=== PATIENT | male | born 1930 | race Caucasian/White ===

== ENCOUNTER 2017-08-22 01:00 | Inpatient (IN) ==
--- NOTE | 2017-08-22 01:14 | Emergency Department Report ---
Abdominal Pain HPI - General Stated Complaint: constipation x 5days Time Seen by Provider: 08/22/17 01:13 Source: patient Mode of arrival: ambulatory Limitations: no limitations - History of Present Illness HPI narrative: Pt believes he is constipated as he has not been able to have a normal BM for several days. Having tried several medications otc, tonight the patient tried two dulcolax tabs and began having bloating and increasing pain. Pt believes he has not passed gas all day, and no BM for at least 5 days. - Related Data Home Medications Medication Instructions Recorded Confirmed hydroCHLOROthiazide 25 mg PO DAILY #0 tab 10/30/13 08/22/17 [Hydrochlorothiazide] Acetaminophen [Tylenol] 500 mg PO PRN PRN 08/22/17 08/22/17 Atorvastatin [Lipitor] 1 tab PO HS 08/22/17 08/22/17 Calcium 600 + D [Caltrate + D] 600 mg PO ACB 08/22/17 08/22/17 Metoprolol Tartrate 50 mg PO HS 08/22/17 08/22/17 Omeprazole 40 mg PO DAILY 08/22/17 08/22/17 Oxybutynin Chloride [Ditropan Xl] 10 mg PO DAILY 08/22/17 08/22/17 Trospium [Sanctura] 20 mg PO DAILY 08/22/17 08/22/17 Vitamin E 400 units PO ACB 08/22/17 08/22/17 Allergies Allergy/AdvReac Type Severity Reaction Status Date / Time No Known Allergies Allergy Verified 07/10/17 14:19 Review of Systems All systems: reviewed and negative except as stated PFSH Patient Stated Medical History Cerebrovascular Accident Yes: left side weakness Hearing Loss Yes 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 Colonoscopy. 2. Hernia repair. 3. Cataract removal. 4. Appendectomy. 5. Right finger fx Family History: Family History (Last Reviewed 07/10/17 @ 16:00 by Giuliano Kennedy MD) Father No problems noted. Mother No problems noted. - Social History Smoking status: Never smoker Substance use type: does not use Alcohol intake: never Alcohol intake frequency: does not drink Household members: spouse Current occupational status: retired Physical Exam - Limitations Limitations: no limitations - General General appearance: alert - Normal Exams: Head:: Normocephalic without trauma Eyes:: Pupils are PERRLA w/ EOMI, No scleral icterus, irritation, or foreign bodies noted ENMT:: No facial trauma, nasal exudates, pharyngeal erythema, or exudates are noted Neck:: Full range of motion, without adenopathy, JVD, bruits or thyromegaly Chest/Respirations:: Clear all guzman, with good airflow, and symmetry bilaterally Cardiovascular:: Regular rate and rhythm, without murmur or gallop, Pulses 2+ all extremities, capillary refill, <2 seconds all extremities Lymphatic:: No lymphadenopathy, or lymphedema noted Musculoskeletal:: No tenderness, or deformity noted, good range of motion, all extremities Integumentary:: No rashes, hives, or bruising noted, hair and nails, without abnormality Neurological:: Patient is alert, and oriented, cranial nerves, motor/sensory/ cerebellar, exams w/o gross deficits, to observation Psychiatric:: Patient exhibits, appropriate attention, emotion and affect - Abdominal Exam Abdominal exam: Present: soft, distention, tenderness (diffuse upper tenderness) , guarding, diminished bowel sounds, hypoactive bowel sounds. Absent: rebound, rigidity, organomegaly, trauma, psoas sign, obturator sign, heel tap sign, Barba's sign, Rovsing's sign, tenderness at McBurney's Point, mass, bruit, pulsatile mass, hernia, scar Abdominal Pain - [facility] Narrative Medical decision making narrative: Given Fentanyl and compazine with IVF - some improvement but needed additional Fentanyl cbc - elevated WBC 17,000, no shift CMP normal except elevated Bili 3.5, majority unconjugated. CT shows acute cholecystitis with pericholecystic and perihepatic free fluid. Dr Gomez paged at [phone] - and again at [phone] - Discussed at 0450 - prefers hospitalist admit and get US in AM to assure no CBD stone. Dr. Benítez notified and accepted. - Lab Data Result diagrams: 08/22/17 02:12 08/22/17 02:12 Disposition Clinical Impression: Acute cholecystitis Disposition: 02 [place] [facility] [place] Condition: Improved Prescriptions: No Action Calcium 600 + D [Caltrate + D] 600 mg PO ACB Oxybutynin Chloride [Ditropan Xl] 10 mg PO DAILY Atorvastatin [Lipitor] 1 tab PO HS Omeprazole 40 mg PO DAILY Metoprolol Tartrate 50 mg PO HS Trospium [Sanctura] 20 mg PO DAILY hydroCHLOROthiazide [Hydrochlorothiazide] 25 mg PO DAILY #0 tab Vitamin E 400 units PO ACB Acetaminophen [Tylenol] 500 mg PO PRN PRN PRN Reason: Pain Referrals: Mikayla Norris MD [Primary Care Provider] - - Seen By: physician
[2017-08-22] MEDS ORDERED: FentaNYL 100 MCG/2 ML INJECTION IVP ONE ×2 (01:44→04:06)
[2017-08-22] MEDS ORDERED: METOCLOPRAMIDE 10mg/2ml INJECTION IM ONE (01:44)
[2017-08-22] MEDS ORDERED: KETOROLAC 15 MG/ML INJECTION IVP ONE (01:44)
[2017-08-22] MEDS ORDERED: NS 1,000 ML IV ONE (01:45)
[2017-08-22] MEDS: SALINE FLUSH 10ml SYRINGE IVF PRN ×3 (02:12→12:45)
[2017-08-22] MEDS ORDERED: METOCLOPRAMIDE 10mg/2ml INJECTION IVP ONE (02:36)
[2017-08-22] MEDS ORDERED: IOHEXOL 300mg/ml 100ml INJECTION ONE (02:46)
[2017-08-22] MEDS ORDERED: SALINE FLUSH 10ml SYRINGE ONE ×2 (02:47→15:55)
[2017-08-22] MEDS ORDERED: ONDANSETRON 4 MG/2 ML INJECTION IVP PRN ×2 (05:33→16:55)
[2017-08-22 06:00] VITALS: BMI 37.5
--- NOTE | 2017-08-22 06:18 | History & Physical Report ---
History of Present Illness Date: 08/22/17 Chief complaint: abdominal pain HPI: 87 yo who presents to the ER c/o midabominal pain, constant, sharp cramping, radiating to the rt shoulder blade present for the past 5 days. no fevers, chills, vomiting but + for nausea and constipation X 5 days, bloating and distention. He went to an ER in [place], [place] and was told he was constipated and sent home on Miralax Review of Systems All systems PM: 10-point ROS was reviewed, no additional remarkable complaints except Past Medical History Medical History: Medical History (Last Reviewed 08/22/17 @ 06:18 by Orlando Benítez MD) Arthritis Cataracts, bilateral Glaucoma Stroke October 2013 GERD (gastroesophageal reflux disease) Surgical History: 1. Colonoscopy. 2. Hernia repair. 3. Cataract removal. 4. Appendectomy. 5. Right finger fx Family History: Family History (Last Reviewed 07/10/17 @ 16:00 by Giuliano Kennedy MD) Father No problems noted. Mother No problems noted. Family History: As Above (ok) - Social History Smoking status: Never smoker Medications Home Medications Medication Instructions Recorded Confirmed Type hydroCHLOROthiazide 25 mg PO DAILY #0 tab 10/30/13 08/22/17 History [Hydrochlorothiazide] Acetaminophen [Tylenol] 500 mg PO PRN PRN 08/22/17 08/22/17 History Atorvastatin [Lipitor] 1 tab PO HS 08/22/17 08/22/17 History Calcium 600 + D [Caltrate + D] 600 mg PO ACB 08/22/17 08/22/17 History Metoprolol Tartrate 50 mg PO HS 08/22/17 08/22/17 History Omeprazole 40 mg PO DAILY 08/22/17 08/22/17 History Oxybutynin Chloride [Ditropan Xl] 10 mg PO DAILY 08/22/17 08/22/17 History Trospium [Sanctura] 20 mg PO DAILY 08/22/17 08/22/17 History Vitamin E 400 units PO ACB 08/22/17 08/22/17 History Allergies Allergy/AdvReac Type Severity Reaction Status Date / Time No Known Allergies Allergy Verified 07/10/17 14:19 Exam Vital Signs: Temperature 97.0 F 08/22/17 06:02 Pulse Rate 106 H 08/22/17 06:02 Respiratory Rate 32 H 08/22/17 06:02 Blood Pressure 112/64 08/22/17 06:02 Pulse Oximetry 93 08/22/17 06:02 Height/Weight/BMI: Height 1.68 m Weight 105.4 kg Body Mass Index 37.5 - Constitutional Present: no acute distress, obese - Routine Neck Exam Present: supple - Routine Respiratory Exam Present: CTA bilaterally - Routine Cardiovascular Exam Present: RRR, no murmur - Routine Abdominal Exam Present: soft, normoactive bowel sounds, non tender, distended Results - Labs CBC & Chem 7: 08/22/17 02:12 08/22/17 02:12 Assessment and Plan (1) Acute cholecystitis Current visit: Yes Status: Acute Assessment and Plan: will place NPO, IVF, pain meds IV narcotic, general surgery consulted. monitor DVT Prophylaxis: SCD's GI Prophylaxis: Protonix Resuscitation Status: Full Code - Physician Narrative Narrative: Date: 08/22/17 Time: 612 Hospital Course Summary Disclaimer: The visit summary below is not to be considered part of the above Progress Note.
[2017-08-22] MEDS: MORPHINE SULFATE 4mg INJECTION IVP PRN ×3 (06:27→10:09)
[2017-08-22] MEDS: LR 1,000 ML IV SCH ×3 (06:38→19:13)
--- NOTE | 2017-08-22 07:58 | CT Scan Report ---
Indication: abd pain, bloating, possible SBO PROCEDURE: CT abdomen pelvis w con: Encounter: Initial Comparison: None Technique: Axial CT images were performed through the abdomen and pelvis after the administration of intravenous contrast. Coronal and sagittal two-dimensional reformats. Automated Exposure Control and Iterative Reconstruction dose reducing techniques were utilized. Contrast: Omnipaque 300 98 mL Findings: Atelectasis seen in both lower lobes with areas of scarring. Heart is enlarged. Small amount of ascites present. The gallbladder is distended, inflamed and thick walled. The liver shows some edema in the gallbladder fossa and mild fatty infiltration. No bile duct dilatation. The spleen, pancreas and adrenal glands are within normal limits. Right renal cyst. Kidneys are otherwise unremarkable. No abdominal or pelvic adenopathy. Bladder is normal. Prostate is moderately enlarged. Sigmoid diverticulosis without evidence of acute diverticulitis. Large amount of stool in the right colon and cecum with several fluid-filled small bowel loops that could represent an ileus or gastroenteritis. Bone windows show degenerative change in the spine. Impression: Acute cholecystitis. Surgical consultation is recommended. There is a preliminary report by [employer]. .
--- NOTE | 2017-08-22 08:44 | Ultrasound Report ---
Indication: abdominal pain PROCEDURE: US gall bladder: Encounter: Initial Comparison: CT abdomen and pelvis from earlier today Technique: Grayscale and color Doppler sonographic imaging of the right upper quadrant of the abdomen was performed. Findings: Hepatic parenchyma is homogeneous without evidence for focal mass. The gallbladder is diffusely abnormal with severe wall thickening up to 8 mm. There is wall edema present. Multiple gallstones are seen in the neck of the gallbladder that appeared fixed in position. Sonographic Barba's sign was reportedly positive. Both the intra and extrahepatic biliary system are of normal caliber with the common duct measuring 5 mm in dimension. Visualized portions of the head and body of the pancreas are unremarkable. The right kidney is present without collecting system dilatation. The right kidney measures 12.8 cm in length. 2.7 cm right renal cyst. Impression: Acute cholecystitis. .
--- NOTE | 2017-08-22 09:49 | Consultation ---
DATE OF CONSULTATION 08/22/2017 HISTORY OF PRESENT ILLNESS This patient is 87 years old. This patient has been having some recent severe constipation. He has been eating well. He has not had a bowel movement for the past five days. The patient did experience the onset of some generalized abdominal pain about two days ago. He went to an emergency room at [place], [place] and was evaluated. The patient states that no cause for his abdominal pain was found and that he was dismissed from the emergency room. The patient has continued to have some generalized abdominal pain over the last two days. The pain became worse last night and the patient came to [facility] emergency room. The patient had a CT scan of the abdomen and pelvis performed at the emergency room and it showed acute cholecystitis. The patient also was found to have leukocytosis at evaluation at [facility] emergency room. The patient has been admitted to [facility]. The patient continues to have abdominal pain. PAST MEDICAL HISTORY Previous operations: Appendectomy when the patient was in high school at [place], [place]. PHYSICAL EXAMINATION VITAL SIGNS: Temperature is 99.3 degrees Fahrenheit oral. Pulse is 111. Respiratory rate is 20. Blood pressure is 150/72. Oxygen saturation is 93% on oxygen at 2 liters per minute by nasal cannula. ABDOMEN: The patient has an old right lower quadrant paramedian abdominal incision scar. The abdomen is distended. The abdomen is diffusely tender. There is no localized tenderness. SKIN: No jaundice. LABORATORY DATA White blood cell count is 17,200 with 3 bands and 79% neutrophils. Hemoglobin is 16. Hematocrit is 47. Total bilirubin is 3.5. Unconjugated bilirubin is 3.1. AST, ALT and alkaline phosphatase are normal. Serum lipase is normal IMAGING DATA CT scan of the abdomen and pelvis shows findings consistent with acute cholecystitis. The gallbladder is distended with thick wall of the gallbladder. There is edema at the gallbladder fossa. There is no bile duct dilation. The patient has some sigmoid colon diverticulosis but no diverticulitis. There is a large amount of stool in the right side of the colon and cecum with some fluid-filled small bowel loops which could represent an ileus. The gallbladder sonogram shows findings consistent with acute cholecystitis. There is also some cholelithiasis. The patient has severe gallbladder wall thickening with some edema. Bile ducts are not dilated. IMPRESSION 1. Acute cholecystitis and cholelithiasis. 2. Constipation. 3. Sigmoid colon diverticulosis. PATIENT EDUCATION I did talk with the patient and his about having the patient undergo multiport robotic laparoscopic cholecystectomy for treatment of acute cholecystitis and cholelithiasis. The nature of this procedure was described to them. I did tell the patient and his that the patient may need to have conversion of the laparoscopic cholecystectomy over to an open laparotomy with cholecystectomy operation. Expected benefits of operative treatment were reviewed. Alternatives were reviewed. Potential risks and complications were reviewed including anesthetic risk, bleeding, infection, poor wound healing, bile leak and injury to intraabdominal structures such as the liver, common duct , the duodenum and loops of large and small intestine. Questions were solicited from the patient and his . They did have some questions which were all answered to their satisfaction. They did wish to have the patient proceed. PLAN Multiport robotic laparoscopic cholecystectomy with possible conversion to open laparotomy with cholecystectomy by Dr. Gomez at [facility]. VIKRAM
[2017-08-22] MEDS ORDERED: INDOCYANINE GREEN 25mg INJECTION ONE (10:32)
[2017-08-22] MEDS ORDERED: BUPIVACAINE 0.25% (2.5mg/ml) PF 30ml INJECTION ONE (10:32)
--- NOTE | 2017-08-22 11:59 | Anesthesia Preoperative Report ---
Anesthesia Preoperative Record - Date and Time Date: 08/22/17 Preoperative Diagnosis: acute cholecystitis NPO Since Date: 08/21/17 NPO Since Time: 00:00 Allergies/Adverse Reactions: Allergies Allergy/AdvReac Type Severity Reaction Status Date / Time No Known Allergies Allergy Verified 07/10/17 14:19 - Vital Signs Vital Signs: Temperature 99.4 F 08/22/17 11:49 Pulse Rate 108 H 08/22/17 11:49 Respiratory Rate 24 08/22/17 11:49 Blood Pressure 127/62 08/22/17 11:49 Pulse Oximetry 93 08/22/17 11:49 Height and Weight: Height 1.68 m Weight 105.3 kg Body Mass Index 37.5 - Medications Inpatient Medications: Current Medications Atorvastatin Calcium (Lipitor) 20 mg PO HS DERIC Lactated Ringer's (Lactated Ringers) 1,000 mls @ 100 mls/hr IV .Q10H DERIC Last Admin: 08/22/17 06:38 Dose: 100 mls/hr Piperacillin Sod/Tazobactam (Sod 3.375 gm/ Sodium Chloride) 100 mls @ 200 mls/ hr IV Q6H DERIC Lactated Ringer's (Lactated Ringers) 1,000 mls @ 50 mls/hr IV .Q20H DERIC Metoprolol Tartrate (Lopressor) 50 mg PO HS DERIC Morphine Sulfate (Morphine Sulfate Inj) 2 - 4 mg IVP Q2H PRN PRN Reason: Pain Last Admin: 08/22/17 10:09 Dose: 2 mg Ondansetron HCl (Zofran) 4 mg IVP Q6H PRN PRN Reason: Nausea &/or vomiting Sodium Chloride (Iv Flush) 10 - 80 ml IVF PRN PRN PRN Reason: Flushing Last Admin: 08/22/17 06:27 Dose: 10 ml Home Medications: Home Medications Medication Instructions Recorded Confirmed Type hydroCHLOROthiazide 25 mg PO DAILY #0 tab 10/30/13 08/22/17 History [Hydrochlorothiazide] Acetaminophen [Tylenol] 500 mg PO PRN PRN 08/22/17 08/22/17 History Atorvastatin [Lipitor] 1 tab PO HS 08/22/17 08/22/17 History Calcium 600 + D [Caltrate + D] 600 mg PO ACB 08/22/17 08/22/17 History Metoprolol Tartrate 50 mg PO HS 08/22/17 08/22/17 History Omeprazole 40 mg PO DAILY 08/22/17 08/22/17 History Oxybutynin Chloride [Ditropan Xl] 10 mg PO DAILY 08/22/17 08/22/17 History Trospium [Sanctura] 20 mg PO DAILY 08/22/17 08/22/17 History Vitamin E 400 units PO ACB 08/22/17 08/22/17 History Is Patient on Beta Pillo?: Yes Beta Pillo Last Dose Date/Time: 08/22/17 - Medical History Respiratory: Reports: Dyspnea, Sleep Apnea (uses CPAP) Cardiovascular: Reports: Hypertension Gastrointestional: Reports: Gastroesophageal Reflux Disease, Morbid Obesity Neuro/Musculoskeletal: Reports: HX.MS.OSAR (knees), Cerebrovascular Accident ( left side weakness 2013 and slight speech deficit), Muscle Weakness Other History: Reports: Cancer (SKIN-EAR & CHEEK) - Surgical History HEENT Surgeries: Reports: Tonsillectomy Cardiac Surgeries/Treatments: Reports: Cardiac Catheterization (2013) Respiratory Surgery/Treatments: Reports: CPAP Use GI Surgery/Treatments: Reports: Appendectomy, Colonoscopy, EGD, Other (egd) Surgery/Treatment: REPORT: Prostatectomy Musculoskeletal Surgery/Tx: Reports: Total Knee Replacement (right) Reproductive Surgery/Treatment: Reports: Other (ED) Anesthesia Reactions: None Hx Family Anesthesia Reaction: No History of Motion Sickness: No - Social History Smoking Status: Never smoker Hx Chewing Tobacco Use: No Second Hand Exposure: No Substance Use Type: does not use Alcohol Intake: never Alcohol Intake Frequency: does not drink - Physical Exam Respiratory Exam: Present: lungs clear, bilateral breath sounds equal Cardiovascular Exam: Present: regular rate and rhythm - Airway Assessment Mallampati Score: III TMD: 3 Fingerbreadths Neck Extension: poor Teeth: poor dentation Overall Assessment: may be difficult intubation - ASA ASA Score: 3 - Plan Anesthesia: General Inhalation Gases - Discussion Discussion: Discussed risks/options/alternatives of anesthesia and questions answered. Patient consents. Nursing pain assessment noted. Present for Discussion: family member Attestation Statement: Prior to the delivery of any anesthetic medication, I examined the patient, developed the plan, obtained the patient's consent and discussed the risk and benefits of the procedure with the patient/guardian. - Additional Information Seen by Anesthesia: Yes
[2017-08-22] MEDS ORDERED: LR 1,000 ML IV SCH (12:00)
[2017-08-22] MEDS ORDERED: FentaNYL 250 MCG/5 ML INJECTION ONE ×2 (12:26→15:07)
[2017-08-22] MEDS ORDERED: ROCURONIUM 50 MG/5 ML INJECTION IVP ONE (12:26)
[2017-08-22] MEDS ORDERED: PROPOFOL 20 ML ONE (12:26)
[2017-08-22] MEDS ORDERED: SUCCINYLCHOLINE 20mg/mL 10mL INJECTION ONE (12:26)
[2017-08-22] MEDS: PIPERACILLIN/TAZOBACTAM 3.375 GM in NS 100 ML IV SCH ×2 (12:36→17:55)
[2017-08-22] MEDS ORDERED: LACRI-LUBE EYE OINT 3.5gm ONE (12:56)
[2017-08-22] MEDS ORDERED: DEXAMETHASONE 4 MG/ML INJECTION ONE (13:21)
[2017-08-22] MEDS ORDERED: ONDANSETRON 4 MG/2 ML INJECTION ONE (13:21)
[2017-08-22] MEDS ORDERED: SUGAMMADEX 200mg/2ml INJECTION IVP ONE (13:43)
[2017-08-22] MEDS ORDERED: SALINE FLUSH 10ml SYRINGE IV ONE (13:44)
[2017-08-22] MEDS ORDERED: BUPIVACAINE 0.25% (2.5mg/ml) PF 30ml INJECTION ID ONE (13:44)
[2017-08-22] MEDS ORDERED: INDOCYANINE GREEN 25mg INJECTION IVP ONE (13:44)
[2017-08-22] MEDS ORDERED: DESFLURANE 240ml LIQUID IH ONE (15:01)
--- NOTE | 2017-08-22 16:21 | General Surgery Procedure Note ---
Date of Procedure: 08/22/17 Surgeon: Jason Postoperative Diagnosis: Acute cholecystitis Procedure: Robotic laparoscopic cholecystectomy Estimated Blood Loss: See Anesthesia Record.
--- NOTE | 2017-08-22 16:27 | Anesthesia Postoperative Note ---
- Date and Time Date: 08/22/17 Time: 16:26 - Status Patient Participated in Evaluation: Patient Participated in Person Vital Signs: Temperature 99.4 F 08/22/17 11:49 Pulse Rate 108 H 08/22/17 11:49 Respiratory Rate 24 08/22/17 11:49 Blood Pressure 127/62 08/22/17 11:49 Pulse Oximetry 93 08/22/17 11:49 Respiratory Function: Airway Patent, Regular Respirations EKG: Sinus Rhythm Mental Status: Alert and Oriented Pain Intensity: 0 Hydration: IV Infusing Complications During Recover: None Apparent Post Anesthesia Care Notes: Pt going to ICU for overnight due to increase age, obesity and respiratory status. Pt is stable in PACU now. - Follow-Up Instructions Instructions: Per Surgeon
[2017-08-22] MEDS ORDERED: ACETAMINOPHEN 500 MG TABLET PO PRN (16:55)
[2017-08-22] MEDS ORDERED: PROMETHAZINE 25 MG INJECTION IVP PRN (16:55)
[2017-08-22] MEDS ORDERED: IBUPROFEN 200 MG TABLET PO PRN (16:55)
[2017-08-22] MEDS ORDERED: Oxycodone *IR* 5 MG TABLET PO PRN (16:55)
[2017-08-22] MEDS: MORPHINE SULFATE 10 MG SYRINGE IV PRN ×2 (17:27→19:29)
[2017-08-22] MEDS ORDERED: ATORVASTATIN 20 MG TABLET PO SCH (21:00)
[2017-08-23] MEDS: PIPERACILLIN/TAZOBACTAM 3.375 GM in NS 100 ML IV SCH ×5 (01:42→23:23)
[2017-08-23] MEDS: NS FLUSH BAG 500ml IV PRN ×2 (01:52→11:47)
[2017-08-23] MEDS: LR 1,000 ML IV SCH (02:34)
--- NOTE | 2017-08-23 08:40 | Progress Note ---
- Date 08/23/17 Subjective: 87-year-old male patient who has not had a bowel movement for at least 5 days. He has tried MiraLAX as well as Dulcolax and even an enema. He reports not passing gas either. He states he's been eating regular food. He has had some nausea but mostly abdominal bloating and pain. Pain is diffuse throughout his abdomen but it is worse in the right upper quadrant. He presented to [facility] recently for the same complaints and was discharged without any etiology. It was particularly bad last evening and he presented to our emergency room. CT of the abdomen and pelvis showed acute cholecystitis. There was also showed a large amount of stool in the right: NC come several fluid filled small bowel loops the could represent an ileus or gastroenteritis. He had a moderately enlarged prostate. He was subsequently admitted for further evaluation and care. A surgical consult was initiated. When seen by me this morning he continues to complain of abdominal pain and continues to be quite concerned with not having a bowel movement or passing any gas in the last 5 days despite eating a regular diet. His is in the room with him. Surgery has already been in to see him and is recommending cholecystectomy this afternoon. He denies any fever or chills. He denies any worsening shortness of breath but states it's difficult to take a deep breath because it hurts his abdomen. He denies cough or sputum production. He denies chest pain or pressure. He denies palpitations. He denies current nausea. He has not had any vomiting. He has not had any flatus. His abdomen is tender and distended. He feels bloated. He denies any problems with urinating. He denies any problems with lower extremity edema. This morning the patient was seen in the ICU. He is status post robotic laparoscopic cholecystectomy. He is doing well. He still has mild discomfort in his abdomen as expected. Surgery has seen him this morning already and is agreeable to transfer to regular floor bed, ambulation and advancing diet as tolerated. The patient denies any fever or chills. He denies any shortness of breath. He denies any chest pain or palpitations. He denies any nausea. Still no stool output. Denies any genitourinary problems. He does have a Stone in place. Objective Vital signs: Temperature 97.3 F 08/22/17 17:00 Pulse Rate 64 08/23/17 05:00 Respiratory Rate 11 08/23/17 05:00 Blood Pressure 100/54 08/23/17 05:00 Pulse Oximetry 94 08/23/17 05:31 Rhythm: Second Degree AV Block Type I - [place] Height/Weight/BMI: Height 1.68 m Weight 105.3 kg Body Mass Index 37.5 Comments: Gen: alert and oriented. NAD Skin: warm and dry HEENT: NC/AT PERRL, EOMI, Sclera, lids and conjunctiva wnl, MMM, OP clear Neck: supple. No JVD, Carotids 2+ without bruits. Lungs: diminished, No rales or rhonchi or wheezes CV: regular. No murmur, rub or gallop Abd: mildly distended, Softer than yesterday, TTP. Hypoactive BS MS: No edema. Good strength and ROM. Neuro: No focal deficit Psy: normal mood and affect Results - Labs CBC & Chem 7: 08/23/17 04:26 08/23/17 04:26 Microbiology Results: Microbiology 08/22/17 13:47 Gallbladder Fluid Gram Stain - Final 08/22/17 13:47 Gallbladder Fluid Body Fluid Culture - Preliminary Klebsiella pneumoniae Assessment and Plan (1) Acute cholecystitis Current visit: Yes Status: Acute Assessment and Plan: Assessment and plan: (1) Acute cholecystitis -S/P robotic laparoscopic cholecystectomy postop day one -advance diet as tolerated -continue IV antibiotics -transfer to the floor -increase activity (2) constipation -initiate aggressive bowel regimen (3) hypertension -metoprolol succinate 50 mg QHS (4) dyslipidemia -resume Statin (5) history of stroke -continue statin -initiate aspirin (6) GERD -PPI (7) REENA -CPAP -Overnight oximetry (8) BPH and spasms -continue Trospium and Ditropan XL (9) Prophylaxis -Sub Q Heparin, PPI Transfer to monitor bed, increase activity in advance diet as tolerated - Physician Narrative Narrative: Date: 08/23/17 Time: 0836 Hospital Course Summary Disclaimer: The visit summary below is not to be considered part of the above Progress Note.
[2017-08-23] MEDS ORDERED: ACETAMINOPHEN 500 MG TABLET PO PRN (08:43)
--- NOTE | 2017-08-23 09:54 | Operative Note ---
DATE OF OPERATION 08/22/2017 PREOPERATIVE DIAGNOSIS Acute cholecystitis and cholelithiasis. POSTOPERATIVE DIAGNOSIS Acute cholecystitis and cholelithiasis. OPERATION Multiport robotic laparoscopic cholecystectomy. SURGEON Angel Gomez MD ANESTHESIA General ASA CLASS 3 FINDINGS The gallbladder was severely acutely inflamed. The gallbladder wall was very thick. The gallbladder was edematous. The greater omentum was adherent to the outside of the gallbladder. The gallbladder did contain multiple black gallstones. Adipose tissue around the infundibulum of the gallbladder was edematous. The liver appeared normal. DESCRIPTION OF OPERATION The patient did have injectable indocyanine green dye administered intravenously preoperatively. The patient was placed in supine position on the operating table. General anesthesia was satisfactorily induced. The abdomen was prepped and draped in routine sterile fashion. Bupivacaine 0.25% without epinephrine was infiltrated into the skin and underlying tissue at an infraumbilical incision site. An infraumbilical incision was made. This incision was extended through the abdominal wall under direct vision. This was a Uri type of entry. A 12 mm camera port was placed at the infraumbilical incision. Pneumoperitoneum was established with carbon dioxide. A 12 mm 30 degree da Dell laparoscope was inserted at the infraumbilical port. The patient was placed in reverse Trendelenburg position. The right side of the table was tilted up. The skin and underlying structures at the abdominal wall were infiltrated with bupivacaine at an incision site at the left upper quadrant of the abdomen at the midclavicular line. An incision was made at this site and an 8 mm da Dell instrument port was placed at this incision. The skin and underlying abdominal wall structures were infiltrated with bupivacaine at another incision site at the left side of the abdomen. An incision was made at this site and an AirSeal observation assistant port was placed at this incision. The skin and underlying abdominal wall structures were infiltrated with bupivacaine at an incision site at the right upper quadrant of the abdomen. An incision was made at this site and an 8 mm da Dell instrument port was placed at this incision. The skin and underlying structures were infiltrated with bupivacaine at another incision site at a more lateral location at the right side of the abdomen. An incision was made at this site and another 8 mm da Dell instrument port was placed at this incision. An aspirating cannula was inserted through one of the right-sided instrument ports and used to aspirate bile from the distended gallbladder to decompress the gallbladder. This bile was submitted to the laboratory for gram stain as well as aerobic and anaerobic bacterial culture and sensitivity studies. The da Dell robotic system was brought up to the operating table. The da Dell robotic system was docked at the camera port and the instrument ports. The da Dell 12 mm 30 degree laparoscope was inserted at the camera port. The [place] bipolar forceps was inserted at the 8 mm instrument port at the left upper quadrant of the abdomen associated with instrument arm #1. A Cadiere forceps was inserted at the 8 mm instrument port at the right upper quadrant of the abdomen associated with instrument arm #2. A ProGrasp forceps was inserted at the 8 mm instrument port at the right lateral location of the abdomen associated with instrument arm #3. These instruments were all placed into a position adjacent to the gallbladder. The surgeon then went from the patient's side at the operating table to the surgeon console. The ProGrasp forceps with instrument arm #3 was used to grasp the fundus of the gallbladder and elevate the gallbladder and reflect the liver up superiorly towards the right diaphragm. The infundibulum of the gallbladder was grasped with the Cadiere forceps with instrument arm #2. Edematous adipose tissue was dissected off of the infundibulum of the gallbladder. Dissection was then extended down into the hepatocystic triangle area. The cystic duct was dissected out and identified. The cystic artery was dissected out and identified at this time. The infundibulum of the gallbladder was then dissected out of the gallbladder bed. The dissection was performed at the hepatocystic triangle until the only two structures remaining were the cystic duct and the cystic artery. In addition to this, the infundibulum of the gallbladder was also dissected out of the gallbladder bed. A critical view of safety was achieved at this time. The hepatocystic triangle was cleared of all the fatty and fibrous tissue until the only two structures remaining were the cystic duct and the cystic artery. Two of the Hem-o-jean-claude clips were applied to the cystic artery. The cystic artery was divided between the Hem-o-jean-claude clips with the monopolar curved scissors. Three of the Hem-o-jean-claude clips were then applied to the cystic duct at the junction of the cystic duct and the gallbladder. The cystic duct was divided between the Hem-o-jean-claude clips with the curved dissecting scissors. Two of the Hem -o-jean-claude clips were left in place on the cystic duct stump. The monopolar curved scissors was then used to dissect the gallbladder the remainder of the way out of the gallbladder bed. Tissue was coagulated with the monopolar curved scissors as the gallbladder was being dissected out of the gallbladder bed to maintain hemostasis. The Hem-o-jean-claude clip did come off the infundibulum end of the gallbladder as the gallbladder was being dissected out of the gallbladder bed. The Hem-o-Jean-Claude clip was retrieved and removed from the peritoneal cavity. A 0 PDS Endoloop ligature was then applied to the infundibulum of the gallbladder where the cystic duct had been divided to close the gallbladder. The dissection of the gallbladder out of the gallbladder bed continued with use of the monopolar curved scissors. Bleeding points continued to be coagulated with the monopolar curved scissors. Bleeding points at one area of the gallbladder bed were controlled with application of some small titanium hemoclips. The gallbladder continued to be dissected out of the gallbladder bed. The gallbladder was ultimately completely dissected out of the gallbladder bed. Irrigation was performed at the gallbladder bed. Hemostasis was completed at the gallbladder bed by coagulation of bleeding points with the monopolar curved scissors. Hemostasis was satisfactory at the gallbladder bed. The gallbladder was placed in a position in the peritoneal cavity along the margin of the liver. The instruments were removed from the instrument ports. The da Dell laparoscope was removed from the camera port. The da Dell robotic system was undocked from the ports. The surgeon left the surgeon console and returned back to the side of the patient at the operating table. The da Dell 8.5 mm 30 degree laparoscope was inserted at one of the right- sided da Dell instrument ports. The specimen retrieval pouch was inserted at the camera port. The gallbladder was placed in the specimen retrieval pouch. The specimen retrieval pouch containing the gallbladder was brought out through the infraumbilical incision. The gallbladder was submitted as a specimen for study by the pathologist. The instrument ports were all removed. Carbon dioxide was removed from peritoneal cavity by desufflation. The fascial layer of the infraumbilical incision was closed with a series of simple interrupted stitches using 0 Vicryl suture. Skin margins were then closed at all the incisions with subcuticular stitches using 4-0 Vicryl suture. Benzoin and 1/4- inch wide Steri-Strips were applied to the incisions. Band-Aids and sterile dressings were applied to the incisions. The patient tolerated the operation well. The patient was transferred from the operating room to the recovery room in satisfactory condition. VIKRAM
[2017-08-23] MEDS: TROSPIUM 20 MG TABLET PO SCH (10:26)
--- NOTE | 2017-08-23 11:30 | Progress Note ---
DATE 08/23/2017 POSTOP DAY #1 HISTORY This patient was transferred from the recovery room to the Intensive Care Unit after his operation yesterday as a precautionary measure. He did well overnight last night in the Intensive Care Unit. The patient has used CPAP over night to help him sleep. He is alert and oriented this morning. He has not been out of bed yet. He has not had much to eat or drink yet. He has been receiving intravenous Zosyn postoperatively. He was given some intravenous Zosyn preoperatively and this has been continued postoperatively. The patient does have incentive spirometry ordered. He has sequential compression devices for deep venous thrombosis prophylaxis. PHYSICAL EXAMINATION VITAL SIGNS: Pulse is 64. Respiratory rate is 11. Blood pressure is 100/54. Oxygen saturation was 94% on CPAP. ABDOMEN: Band-Aids and dressings are left in place at the abdominal incisions. LABORATORY DATA White blood cell count is 16,900 with 2 bands. Hemoglobin is 13.1. Hematocrit is 39.6. Serum electrolytes are normal. Total bilirubin is 2.7. Unconjugated bilirubin is 2.1. Culture of fluid aspirated from the gallbladder at the time of the operation yesterday is growing out Klebsiella pneumoniae. IMPRESSION 1. Doing well following multiport robotic laparoscopic cholecystectomy on 08/22. 2. Constipation. PLAN 1. Transfer patient from Intensive Care Unit out to Surgical Unit today. 2. Continue intravenous Zosyn. 3. Get patient up in chair and ambulate patient today. 4. Sequential compression devices for deep venous thrombosis prophylaxis. 5. Discontinue Stone catheter. 6. Advance diet as tolerated. 7. Begin laxatives today for treatment of constipation. VIKRAM
[2017-08-23] MEDS: POLYETHYL GLYCOL 3350 17gm PACKET PO SCH (11:47)
[2017-08-23] MEDS: ASPIRIN 325 MG TABLET PO SCH (11:47)
[2017-08-23] MEDS: TAMSULOSIN 0.4 MG CAPSULE PO SCH (16:22)
[2017-08-23] MEDS: SENNA + DOCUSATE TABLET PO SCH (20:41)
[2017-08-24] MEDS: PIPERACILLIN/TAZOBACTAM 3.375 GM in NS 100 ML IV SCH ×4 (05:01→23:28)
[2017-08-24] MEDS: CALCIUM 600 + VIT D 400 TABLET PO SCH (05:32)
[2017-08-24] MEDS: ASPIRIN 325 MG TABLET PO SCH (09:33)
[2017-08-24] MEDS: SENNA + DOCUSATE TABLET PO SCH ×2 (09:33→20:34)
[2017-08-24] MEDS: TROSPIUM 20 MG TABLET PO SCH (09:33)
[2017-08-24] MEDS: TAMSULOSIN 0.4 MG CAPSULE PO SCH (09:33)
[2017-08-24] MEDS: POLYETHYL GLYCOL 3350 17gm PACKET PO SCH (09:33)
--- NOTE | 2017-08-24 09:55 | Progress Note ---
- Date 08/24/17 Subjective: 87-year-old male patient who has not had a bowel movement for at least 5 days. He has tried MiraLAX as well as Dulcolax and even an enema. He reports not passing gas either. He states he's been eating regular food. He has had some nausea but mostly abdominal bloating and pain. Pain is diffuse throughout his abdomen but it is worse in the right upper quadrant. He presented to [facility] [place] [facility] recently for the same complaints and was discharged without any etiology. It was particularly bad last evening and he presented to our emergency room. CT of the abdomen and pelvis showed acute cholecystitis. There was also showed a large amount of stool in the right: NC come several fluid filled small bowel loops the could represent an ileus or gastroenteritis. He had a moderately enlarged prostate. He was subsequently admitted for further evaluation and care. A surgical consult was initiated. When seen by me this morning he continues to complain of abdominal pain and continues to be quite concerned with not having a bowel movement or passing any gas in the last 5 days despite eating a regular diet. His is in the room with him. Surgery has already been in to see him and is recommending cholecystectomy this afternoon. He denies any fever or chills. He denies any worsening shortness of breath but states it's difficult to take a deep breath because it hurts his abdomen. He denies cough or sputum production. He denies chest pain or pressure. He denies palpitations. He denies current nausea. He has not had any vomiting. He has not had any flatus. His abdomen is tender and distended. He feels bloated. He denies any problems with urinating. He denies any problems with lower extremity edema. This morning the patient was seen by me he is up to the BR and then in the chair. He still has not had any BM or flatus. He does feel distended. He had more pain last night in his abdomen. He denies any fever or chills. He denies any shortness of breath. He denies any chest pain or palpitations. He is having mild nausea. He has no appetite. He does well with water and apple juice. He is having some hematuria post de santiago removal. He was not emptying his bladder completely. He had urinary frequency. 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 NAD Skin: warm and dry HEENT: NC/AT PERRL, EOMI, Sclera, lids and conjunctiva wnl, MMM, OP clear Neck: supple. No JVD, Carotids 2+ without bruits. Lungs: diminished, No rales or rhonchi or wheezes CV: regular. No murmur, rub or gallop Abd: mildly distended, Slightly firm. Surgical wounds look good. TTP. Hypoactive BS MS: No edema. Good strength and ROM. Neuro: No focal deficit Psy: normal mood and affect Results - Labs CBC & Chem 7: 08/24/17 04:31 08/24/17 04:31 Microbiology Results: Microbiology 08/22/17 13:47 Gallbladder Fluid Gram Stain - Final 08/22/17 13:47 Gallbladder Fluid Body Fluid Culture - Final Klebsiella pneumoniae Assessment and Plan (1) Acute cholecystitis Current visit: Yes Status: Acute Assessment and Plan: Assessment and plan: (1) Acute cholecystitis -S/P robotic laparoscopic cholecystectomy postop day two -Change diet to clear for now -continue IV antibiotics -increase activity (2) constipation -initiate aggressive bowel regimen -Enema today if nec -Check KUB-it shows dilated stomach, NGT placed for decompression (3) hypertension -metoprolol succinate 50 mg QHS -Norvasc 5 mg added (4) dyslipidemia -resume Statin when taking po better. (5) history of stroke -resume statin when taking po better -initiate aspirin (6) GERD -PPI (7) REENA -CPAP (8) Urinary retention, frequency and spasms -Continue Trospium and DC Ditropan XL -Flomax added (9) Hematuria -Like de santiago trauma but will follow -Will need outpt follow up with urology (10) Prophylaxis -Sub Q Heparin - Physician Narrative Narrative: Date: 08/24/17 Time: 951 Hospital Course Summary Disclaimer: The visit summary below is not to be considered part of the above Progress Note.
[2017-08-24] MEDS ORDERED: HYDRALAZINE 20 MG/ML INJECTION IVP PRN (11:12)
[2017-08-24] MEDS ORDERED: METOPROLOL 5mg/5ml INJECTION IVP PRN (11:13)
--- NOTE | 2017-08-24 11:13 | XRay Report ---
Indication: constipation, nausea PROCEDURE: XR KUB: Encounter: Initial Comparison: CT abdomen dated August 22, 2017 Findings: Mild atelectasis in the lung bases. There is gaseous distention of the stomach. Mildly prominent small and large bowel with diffuse distention. There is subcutaneous emphysema in the left abdomen probably related to recent surgery. Moderate to large amount of stool in the colon. Degenerative change in the spine. Impression: 1. Findings of a generalized ileus. 2. Increased colonic stool burden. 3. Basilar atelectasis. .
[2017-08-24] MEDS: HEPARIN SUB-Q 5,000units/0.5ml INJECTION SQ SCH ×2 (11:28→17:09)
[2017-08-24] MEDS: AMLODIPINE 2.5 MG TABLET PO SCH (11:54)
[2017-08-24] MEDS: NS 1,000 ML IV SCH ×3 (12:02→23:12)
--- NOTE | 2017-08-24 16:02 | Progress Note ---
DATE 08/24/2017 POSTOPERATIVE DAY #2 HISTORY OF PRESENT ILLNESS The patient has ambulated a couple of times so far today. The patient is alert and oriented. The patient has been burping quite a bit but has not been passing any flatus. The patient did last have a bowel movement 7 days ago. He was given quite a few laxatives yesterday and did not have any bowel movement in response to all these laxatives. The patient has tolerated small amounts of his oral diet. Diet has been changed back to a clear liquid diet. The patient is up in a chair at the present time. PHYSICAL EXAMINATION VITAL SIGNS: Temperature is 97.2 degrees Fahrenheit oral. Pulse is 72. Respiratory rate is 18. Blood pressure is 157/91. Oxygen saturation is 95% on oxygen at 4 liters per minute by nasal cannula. ABDOMEN: The abdomen is distended and tympanic today. The abdominal incisions all look good. The abdomen is soft. NEUROLOGIC: The patient is alert and oriented. LABORATORY DATA White blood cell count is 16,200 with no bands. Hemoglobin is 13.5. Hematocrit is 40.4. Electrolytes are normal. Total bilirubin is decreased to 1.6. The final culture result on fluid aspirated from the gallbladder at the time of operation was a culture which was positive for Klebsiella pneumoniae. The Klebsiella pneumoniae was sensitive to the Zosyn which the patient is receiving. IMAGING DATA The patient did have KUB and upright abdominal x-rays this morning. They show some mild atelectasis at both lung bases. The stomach is distended with a large amount of air. There is prominent gastric distention. There are mildly prominent large and small bowel loops with diffuse distention. There continues to be a moderate to large amount of stool in the colon. This would be consistent with the preoperative CT scan finding of constipation. IMPRESSION 1. Status post multiport robotic laparoscopic cholecystectomy on 08/22/2017 for treatment of severe acute cholecystitis and cholelithiasis. 2. Constipation with history that the patient has not had a bowel movement for the past 7 days. 3. Marked gastric distention demonstrated on KUB and upright abdominal x-rays performed today. 4. Generalized ileus. Some of this was present preoperatively from the acute cholecystitis and some of this is postoperative ileus. 5. Bibasilar pulmonary atelectasis. PLAN 1. Continue to ambulate patient. 2. Placement of nasogastric tube for treatment of the marked gastric distention. 3. Resume IV fluids since the patient is having a nasogastric tube inserted. 4. Continue intravenous Zosyn. 5. Continue sequential compression devices for deep venous thrombosis prophylaxis. Subcutaneous heparin has also been ordered for the patient to help with deep venous thrombosis prophylaxis and I agree with this. 6. Continue treatment of constipation. The patient will be given an enema today to try to help resolve the constipation. 7. Continue incentive spirometry for treatment of the pulmonary atelectasis. MTDD
[2017-08-25] MEDS: PIPERACILLIN/TAZOBACTAM 3.375 GM in NS 100 ML IV SCH ×3 (05:03→19:20)
[2017-08-25] MEDS: CALCIUM 600 + VIT D 400 TABLET PO SCH (05:41)
[2017-08-25] MEDS: NS 1,000 ML IV SCH ×2 (08:32→18:20)
[2017-08-25] MEDS: MORPHINE SULFATE 10 MG SYRINGE IV PRN (08:37)
--- NOTE | 2017-08-25 08:41 | XRay Report ---
Indication: CHECK NG PLACEMENT PROCEDURE: XR KUB: Encounter: Initial Comparison: Radiographs from earlier on the same date Findings: Nasogastric tube is seen coiling back upon itself with the tip above the level of the image in the mid to upper thoracic esophagus. Side port projects over the lower esophagus. Mild interstitial prominence in the lung bases. Mild diffuse small and large bowel distention. Impression: Nasogastric tube is looped in the esophagus. There is a preliminary report by [facility]. .
--- NOTE | 2017-08-25 08:42 | XRay Report ---
Indication: NGT placement PROCEDURE: XR KUB: Encounter: Initial Comparison: August 24, 2017 at 1240 Findings: Nasogastric tube remains coiled in the esophagus with the tip projecting over the mid to lower thoracic esophagus. Gaseous distention of the stomach, small and large bowel is unchanged. Slight increase in bibasilar atelectasis. Impression: Nasogastric tube remains coiled in the esophagus. There is a preliminary report by [facility]. .
--- NOTE | 2017-08-25 09:58 | XRay Report ---
Indication: CONSTIPATION PROCEDURE: XR abdomen 2V: Encounter: Initial Comparison: August 24, 2017 Findings: The nasogastric tube is no longer seen. Air-fluid levels are noted within the stomach and small bowel. Scattered colonic gas is seen. No abnormally dilated small bowel loops appreciated. Moderate stool in the colon. Subcutaneous gas in the left abdominal wall. Impression: Interval removal of the nasogastric tube. Findings of a generalized ileus. .
--- NOTE | 2017-08-25 10:07 | Fluoroscopy Report ---
Indication: Fluoro guided NGT placement PROCEDURE: FL fluoroscopy <1hr: Encounter: Initial Comparison: KUB's from earlier on the same date Technique/Findings: Patient arrived to the department with a nasogastric tube coiled in the lower esophagus. The patient was placed supine on the fluoroscopy table. Fluoroscopy was used to first partially withdraw the nasogastric tube uncoiling it in the esophagus. It was then was advanced into the mid portion of the stomach and secured. Five fluoroscopic spot images were obtained. Impression: Successful repositioning of the nasogastric tube into the mid portion of the stomach. Fluoroscopy time is 45 seconds. .
--- NOTE | 2017-08-25 10:26 | Progress Note ---
- Date 08/25/17 Subjective: 87-year-old male patient who has not had a bowel movement for at least 5 days. He has tried MiraLAX as well as Dulcolax and even an enema. He reports not passing gas either. He states he's been eating regular food. He has had some nausea but mostly abdominal bloating and pain. Pain is diffuse throughout his abdomen but it is worse in the right upper quadrant. He presented to [facility] recently for the same complaints and was discharged without any etiology. It was particularly bad last evening and he presented to our emergency room. CT of the abdomen and pelvis showed acute cholecystitis. There was also showed a large amount of stool in the right: NC come several fluid filled small bowel loops the could represent an ileus or gastroenteritis. He had a moderately enlarged prostate. He was subsequently admitted for further evaluation and care. A surgical consult was initiated. When seen by me this morning he continues to complain of abdominal pain and continues to be quite concerned with not having a bowel movement or passing any gas in the last 5 days despite eating a regular diet. His is in the room with him. Surgery has already been in to see him and is recommending cholecystectomy this afternoon. He denies any fever or chills. He denies any worsening shortness of breath but states it's difficult to take a deep breath because it hurts his abdomen. He denies cough or sputum production. He denies chest pain or pressure. He denies palpitations. He denies current nausea. He has not had any vomiting. He has not had any flatus. His abdomen is tender and distended. He feels bloated. He denies any problems with urinating. He denies any problems with lower extremity edema. This morning the patient was seen by me he is up to the chair. No NGT in place. Apparently it "backed out" and no one was able to advance it into stomach again. He had two enemas yesterday with small hard stool outpt. KUB today continues to show large stomach, air fluid level in stomach and small bowel, stool in colon and generalized ileus. He does state he is passing gas now. He does feel distended. Still some discomfort in the abdomen from the surgery. He denies any fever or chills. He denies any shortness of breath. He denies any chest pain or palpitations. He denies nausea this am. He has no appetite. He is having some hematuria and urinary retention post de santiago removal. He was not emptying his bladder completely and has urinary frequency. He has required straight cath at times for large post void residual. 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 NAD Skin: warm and dry HEENT: NC/AT PERRL, EOMI, Sclera, lids and conjunctiva wnl, MMM, OP clear Neck: supple. No JVD, Carotids 2+ without bruits. Lungs: diminished, clear, No rales or rhonchi or wheezes CV: regular. No murmur, rub or gallop Abd: mildly distended, A little softer today, Surgical wounds look good. Mild TTP. BS better today MS: No edema. Good strength and ROM. Neuro: No focal deficit Psy: normal mood and affect, Pt has poor memory Results - Labs CBC & Chem 7: 08/25/17 04:26 08/25/17 04:26 Microbiology Results: Microbiology 08/22/17 13:47 Gallbladder Fluid Gram Stain - Final 08/22/17 13:47 Gallbladder Fluid Body Fluid Culture - Final Klebsiella pneumoniae Assessment and Plan (1) Acute cholecystitis Current visit: Yes Status: Acute Assessment and Plan: Assessment and plan: (1) Acute cholecystitis -S/P robotic laparoscopic cholecystectomy postop day 3 -Ileus -NPO -continue IV antibiotics -increase activity (2) constipation -initiate aggressive bowel regimen -Enemas x2 again today (3) Ileus -NPO except meds (4) hypertension -metoprolol succinate 50 mg QHS -Norvasc 5 mg added (5) dyslipidemia -resume Statin when taking po better. (6) history of stroke -resume statin when taking po better -initiate aspirin (7) GERD -PPI (8) REENA -CPAP at night (9) Urinary retention, frequency and spasms -Continue Trospium and DC Ditropan XL -Flomax added -Check post void residual, straight cath as needed -If unable to get him on his own well may have to replace de santiago and keep until he can follow up with outpt urology (10) Hematuria -Like de santiago trauma but will follow -Will need outpt follow up with urology (11) Prophylaxis -Sub Q Heparin Pt advised to walk three times a day - Physician Narrative Narrative: Date: 08/25/17 Time: 1018 Hospital Course Summary Disclaimer: The visit summary below is not to be considered part of the above Progress Note.
[2017-08-25] MEDS: AMLODIPINE 2.5 MG TABLET PO SCH (10:49)
[2017-08-25] MEDS: ASPIRIN 325 MG TABLET PO SCH (11:30)
[2017-08-25] MEDS: POLYETHYL GLYCOL 3350 17gm PACKET PO SCH (11:31)
[2017-08-25] MEDS: SENNA + DOCUSATE TABLET PO SCH ×2 (11:31→20:46)
[2017-08-25] MEDS: HEPARIN SUB-Q 5,000units/0.5ml INJECTION SQ SCH ×3 (11:31→17:19)
[2017-08-25] MEDS: TAMSULOSIN 0.4 MG CAPSULE PO SCH (11:34)
[2017-08-25] MEDS: TROSPIUM 20 MG TABLET PO SCH (11:34)
[2017-08-25] MEDS: PANTOPRAZOLE 40 MG INJECTION IVP SCH (11:36)
[2017-08-25] MEDS: AMLODIPINE 5 MG TABLET PO SCH (12:01)
[2017-08-25] MEDS: POTASSIUM CHLORIDE PREMIX 10 MEQ/100 ML BAG IV SCH ×4 (12:59→17:20)
[2017-08-25] MEDS ORDERED: MAGNESIUM CITRATE 296ml PO ONE (15:33)
[2017-08-26] MEDS: PIPERACILLIN/TAZOBACTAM 3.375 GM in NS 100 ML IV SCH ×4 (00:16→17:24)
[2017-08-26] MEDS: HEPARIN SUB-Q 5,000units/0.5ml INJECTION SQ SCH ×3 (00:29→17:24)
[2017-08-26] MEDS ORDERED: FALL RISK - PHARMACY CONSULT MC ONE (05:08)
[2017-08-26] MEDS: NS 1,000 ML IV SCH ×4 (05:41→18:15)
[2017-08-26] MEDS: CALCIUM 600 + VIT D 400 TABLET PO SCH (06:44)
--- NOTE | 2017-08-26 08:02 | Progress Note ---
DATE 08/25/2017 POSTOP DAY #3 HISTORY OF PRESENT ILLNESS The of the patient stated yesterday that it had actually been 9 days yesterday without the patient having had a bowel movement. The patient was given an enema yesterday and did finally have a bowel movement yesterday after receiving the enema. This was the first bowel movement that he had in 9 days. It was very difficult to get a nasogastric tube inserted yesterday morning to try to relieve the marked gastric distention. Dr. Mainor Kowalski did have to come in and place the nasogastric tube under fluoroscopy in order for this to be done. Unfortunately, the nasogastric tube fell out later in the day yesterday. We did just leave the nasogastric tube out after that since it had been so difficult for it to be inserted. PHYSICAL EXAMINATION VITAL SIGNS: Temperature is 97.8 degrees Fahrenheit oral. Pulse is 76. Respiratory rate is 12. Blood pressure is 154/72. Oxygen saturation is 92% on room air. ABDOMEN: The abdominal incisions look good. The abdomen is still a little bit distended but seems a little less distended and tympanic than yesterday. The abdomen is soft. LABORATORY DATA White blood cell count is 10,900 today. Hemoglobin is 13.4. Hematocrit is 40.1. Serum electrolytes are normal today. IMAGING DATA KUB and upright abdominal x-rays were repeated again today. The patient does have quite a bit of gas in the stomach again today. The patient does have some mildly dilated large and small bowel loops with some air-fluid fluid levels consistent in appearance with an ileus pattern. IMPRESSION 1. Status post multiport robotic laparoscopic cholecystectomy on 08/22/2017 for treatment of severe acute cholecystitis and cholelithiasis. 2. Generalized ileus. Some of this was present preoperatively from the acute cholecystitis and some of this is postoperative ileus. 3. Severe constipation. PLAN 1. I agree with keeping the patient NPO yet at this time until the ileus resolves further since he has such a large amount of gastric distention already. 2. Dr. Cantu has ordered a couple of enemas for the patient this morning which I think is an excellent idea. I think this is the best thing we can do at this time to treat the constipation and help with resolution of the ileus. 3. Continue to ambulate the patient as much as possible. This will also help with resolution of the ileus. 4. Continue intravenous Zosyn for a little bit longer. 5. Continue incentive spirometry for treatment of the pulmonary atelectasis. 6. Continue sequential compression devices and subcutaneous heparin for deep venous thrombosis prophylaxis. MTDD
[2017-08-26] MEDS: POLYETHYL GLYCOL 3350 17gm PACKET PO SCH (08:03)
[2017-08-26] MEDS: SENNA + DOCUSATE TABLET PO SCH ×2 (08:03→20:59)
[2017-08-26] MEDS: TAMSULOSIN 0.4 MG CAPSULE PO SCH (08:13)
[2017-08-26] MEDS: ASPIRIN 325 MG TABLET PO SCH (08:13)
[2017-08-26] MEDS: PANTOPRAZOLE 40 MG INJECTION IVP SCH (08:13)
[2017-08-26] MEDS: TROSPIUM 20 MG TABLET PO SCH (08:13)
[2017-08-26] MEDS: AMLODIPINE 5 MG TABLET PO SCH (08:13)
--- NOTE | 2017-08-26 09:41 | Progress Note ---
- Date 08/26/17 Subjective: Mr Madsen is seen this morning in follow up. He reports have a "busy" night as he has 3 large copious bowel movements. He states that he feels "all cleaned out ". Mouth is dry and he requests something to drink. He denies having shortness of breath or chest pain. Abdomen is soft and non-tender on examination. De Santiago cath remains intact. Objective Vital signs: Temperature 99.3 F 08/26/17 07:32 Pulse Rate 83 08/26/17 07:32 Respiratory Rate 16 08/26/17 07:32 Blood Pressure 144/66 H 08/26/17 07:32 Pulse Oximetry 92 08/26/17 07:32 Height/Weight/BMI: Height 1.68 m Weight 103.5 kg Body Mass Index 37.5 - Constitutional Present: no acute distress, well nourished, well developed - Routine HEENT Exam Eye: Present: EOMI ENT: Present: mucous membranes moist, dentition normal - Routine Respiratory Exam Present: CTA bilaterally. Absent: wheezes - Routine Cardiovascular Exam Present: RRR, S1, S2. Absent: murmur - Routine Abdominal Exam Present: soft, non distended. Absent: normoactive bowel sounds (hypoactive), tenderness - Routine Extremities Exam Present: full ROM - Routine Skin Exam Present: intact, dry, warm - Routine Neurological Exam Present: alert, oriented X3, CN II-XII intact, moving all extremities - Routine Lymphatic Exam Lymphatic: Absent: adenopathy - Routine Psychiatric Exam Present: normal affect, normal thought process, cooperative Results - Labs CBC & Chem 7: 08/26/17 04:55 08/26/17 04:55 Microbiology Results: Microbiology 08/22/17 13:47 Gallbladder Fluid Gram Stain - Final 08/22/17 13:47 Gallbladder Fluid Body Fluid Culture - Final Klebsiella pneumoniae Assessment and Plan (1) Acute cholecystitis Current visit: Yes Status: Acute Assessment and Plan: Assessment Acute cholecystitis -S/P robotic laparoscopic cholecystectomy Infected GB fluid- + Klebsiella Pneumoniae Post-op Ileus Urinary retention Hypertension Dyslipidemia GERD REENA History of stroke Plan GB fluid culture was positive for Klebsiella Pneumoniae - Continue on IV Zosyn. De Santiago cath remains intact given retention. Will likely require De Santiago with discharge. Hematuria likely due to trauma from multiple straight Caths. Bowels moved 3 times overnight- copious amount of brown stool. KUB Abdominal X-ray pending this morning. Will Check with Dr Gomez- But feel he can try Clear liquid diet this morning. Continue to follow routine labs. Encourage frequent ambulation. DVT Prophylaxis: SCD's Resuscitation Status: Full Code - Time spent with patient Time with patient PN: 25 minutes - Physician Narrative Physician: Scott Tracey MD Narrative: Date: 08/26/17 Time: 1744 Have independently interviewed and examined pt. Chart reviewed. Case discussed with my [employer]. Care plan developed with my supervision, agree with above. Doing okay today. Less stools than yesterday, but still passing some bowel movement. Less full and bloated to ab. No nausea. Breathing well. Strength decreased - did go walking today, but not able to go as far as he was anticipating. Lungs: clear bilaterally CV: regular AB: soft, distention, BS decreased EXT: no edema MSE: awake alert appropriate. Plan: Continue with Zosyn for antimicrobial coverage. Diet advanced to clears. Will decrease IVF to 50cc/hr. Encourage ambulation. Monitor lab. Hospital Course Summary Disclaimer: The visit summary below is not to be considered part of the above Progress Note. Hospital Course: 08/22/17- Admit Acute cholecystitis -Plan for cholecystectomy this afternoon -will keep NPO -IV fluids Constipation -once he is taking PO again we will initiate aggressive bowel regimen Hypertension -will continue metoprolol but change it to succinate to get the 24-hour control -will hold off diuresis as it will likely compound his constipation Dyslipidemia -continue Statin once starting PO again History of stroke -continue statin, I don't see that he is on a home aspirin, will confirm and if not start one at low dose if there is no contraindication. GERD -continue PPI BPH and spasms -continue Trospium and Ditropan XL Prophylaxis -SCD, PPI 08/23/17 Acute cholecystitis - S/P robotic laparoscopic cholecystectomy postop day 1 -advance diet as tolerated -continue IV antibiotics -transfer to the floor -increase activity Constipation -initiate aggressive bowel regimen Hypertension -metoprolol succinate 50 mg QHS Dyslipidemia -resume Statin History of stroke -continue statin -initiate aspirin 08/24/17 Acute cholecystitis - S/P robotic laparoscopic cholecystectomy postop day 2 -Change diet to clear for now -continue IV antibiotics -increase activity Constipation -initiate aggressive bowel regimen -Enema today if nec -Check KUB-it shows dilated stomach, NGT placed for decompression Hypertension -metoprolol succinate 50 mg QHS -Norvasc 5 mg added 08/25/17 Acute cholecystitis - S/P robotic laparoscopic cholecystectomy postop day 3 -Ileus -NPO -continue IV antibiotics -increase activity Constipation -initiate aggressive bowel regimen -Enemas x2 again today Ileus -NPO except meds Hypertension -metoprolol succinate 50 mg QHS -Norvasc 5 mg added Urinary retention, frequency and spasms -Continue Trospium and DC Ditropan XL -Flomax added -Check post void residual, straight cath as needed -If unable to get him on his own well may have to replace de santiago and keep until he can follow up with outpt urology Hematuria -Like De Santiago trauma but will follow -Will need outpt follow up with urology Dyslipidemia -resume Statin when taking po better. History of stroke -resume statin when taking po better -initiate aspirin 08/26/17 GB fluid culture was positive for Klebsiella Pneumoniae - Continue on IV Zosyn. De Santiago cath remains intact given retention. Will likely require De Santiago with discharge. Hematuria likely due to trauma from multiple straight caths. Bowels moved 3 times overnight- copious amount of brown stool. KUB Abdominal X-ray pending this morning. Will Check with Dr Gomez - But feel he can try Clear liquid diet this morning. Decrease IVF to 50cc/hr. Continue to follow routine labs. Encourage frequent ambulation.
--- NOTE | 2017-08-26 11:29 | XRay Report ---
EXAM: XR KUB DICTATION LOCATION: [facility] INDICATION: post op ileus COMPARISON STUDY: None available. FINDINGS: Abdomen: Gas containing small bowel large bowel loops. Small amount of subcutaneous emphysema along the left lateral abdominal wall. No visible free intraperitoneal air. No evidence for bowel obstruction. No abnormal radiopacities overlying the abdomen. The lung bases are clear. Skeletal Structures: The visualized skeletal structures are within normal limits for the patient's age. IMPRESSION: 1. Gas containing large and small bowel loops without evidence for bowel obstruction. Mild ileus is a consideration. 2. Subcutaneous emphysema suggested along the left lateral abdominal wall. .
--- NOTE | 2017-08-26 13:22 | XRay Report ---
EXAM: XR KUB DICTATION LOCATION: [facility] INDICATION: Ileus COMPARISON STUDY: August 26, 2017 FINDINGS: Abdomen: Gas and fecal contents demonstrated within the colonic bowel loops. There is no evidence for bowel obstruction or free intraperitoneal air. No abnormal radiopacities overlying the abdomen. The lung bases are clear. Skeletal Structures: The visualized skeletal structures are within normal limits for the patient's age. IMPRESSION: 1. Bowel gas pattern is unremarkable without evidence for obstruction or significant constipation. .
[2017-08-27] MEDS: PIPERACILLIN/TAZOBACTAM 3.375 GM in NS 100 ML IV SCH ×5 (00:23→23:46)
[2017-08-27] MEDS: HEPARIN SUB-Q 5,000units/0.5ml INJECTION SQ SCH ×3 (00:28→18:09)
[2017-08-27] MEDS: CALCIUM 600 + VIT D 400 TABLET PO SCH (05:38)
[2017-08-27] MEDS: POLYETHYL GLYCOL 3350 17gm PACKET PO SCH (08:10)
[2017-08-27] MEDS: TROSPIUM 20 MG TABLET PO SCH (08:11)
[2017-08-27] MEDS: ASPIRIN 325 MG TABLET PO SCH (08:11)
[2017-08-27] MEDS: PANTOPRAZOLE 40 MG INJECTION IVP SCH (08:11)
[2017-08-27] MEDS: TAMSULOSIN 0.4 MG CAPSULE PO SCH (08:11)
[2017-08-27] MEDS: SENNA + DOCUSATE TABLET PO SCH ×4 (08:12→20:37)
[2017-08-27] MEDS: AMLODIPINE 5 MG TABLET PO SCH (08:12)
--- NOTE | 2017-08-27 08:23 | Progress Note ---
DATE 08/26/2017 POSTOP DAY #4 HISTORY OF PRESENT ILLNESS The patient did have three bowel movements overnight last night. He had three more bowel movements today. The patient was started on a clear liquid diet today. The patient appears to be tolerating the clear liquid diet well so far. The patient does have a Stone catheter back in place at this time. PHYSICAL EXAMINATION VITAL SIGNS: Temperature is 97 degrees Fahrenheit oral. Pulse is 82. Respiratory rate is 16. Blood pressure is 151/74. Oxygen saturation is 91% on room air. ABDOMEN: The abdominal incisions all look good. LABORATORY DATA White blood cell count is 12,700 today. Hemoglobin is 14.3. Hematocrit is 43.2. Serum electrolytes are normal. Serum creatinine is 1.1. IMAGING DATA The patient did undergo KUB and upright abdominal x-rays today. These do show gas-containing large and small bowel loops. There is an ileus pattern. The stomach remains quite distended with gas. IMPRESSION 1. Status post multiport robotic laparoscopic cholecystectomy on 08/22/2017 for treatment of severe acute cholecystitis and cholelithiasis. 2. Generalized ileus. Some of this was present preoperatively from the acute cholecystitis and some of this is postoperative ileus. 3. Severe constipation which is improving. PLAN 1. Continue clear liquid diet for now. 2. Continue ambulation of the patient. 3. Continue intravenous Zosyn a little longer since the white blood cell count is back up to 12,700 today. 4. Continue incentive spirometry for treatment of pulmonary atelectasis. 5. Continue sequential compression devices and subcutaneous heparin for deep venous thrombosis prophylaxis 6. Recheck white blood cell count again tomorrow. DOTTYD
--- NOTE | 2017-08-27 09:02 | Progress Note ---
- Date 08/27/17 Subjective: F/U: POD #5 - S/P lap berkley secondary to acute cholecystitis. [place] is seen while sitting up in his recliner with nursing present. He reports that during the night he had some upper back pain which was relieved with movement and sitting up in his chair. He denies any other complains or concerns. He reports that his pain is well controlled. No chest pain, shortness of breath, abdominal pain, nausea or vomiting. He is tolerating clear liquids well and bowels are moving. De Santiago catheter present and continues to drain red urine. Labs revealed increase in WBC (16.1) with slight decrease in hemoglobin (12.9). He remains afebrile. BMP was unremarkable. KUB yesterday concerning for mild ileus without obstruction. Nursing reports that patient has been ambulating well with assistance. Objective Vital signs: Temperature 97.8 F 08/27/17 08:00 Pulse Rate 73 08/27/17 08:00 Respiratory Rate 24 08/27/17 08:00 Blood Pressure 151/71 H 08/27/17 08:00 Pulse Oximetry 91 08/27/17 08:00 Rhythm: Second Degree AV Block Type I - [place] Height/Weight/BMI: Height 5 ft 6 in Weight 228 lb 2.855 oz Body Mass Index 37.5 Comments: Sitting up in recliner with nursing at bedside. - Constitutional Present: no acute distress, well nourished, well developed, cooperative - Routine HEENT Exam Head: Present: normocephalic, atraumatic Eye: Present: PERRL. Absent: conjunctival icterus ENT: Present: mucous membranes moist, oropharynx clear - Routine Respiratory Exam Present: decreased breath sounds, CTA bilaterally. Absent: wheezes - Routine Cardiovascular Exam Present: RRR, S1, S2 - Routine Abdominal Exam Present: soft, non tender, distended Comments: Hypoactive bowel sounds. - Routine Exam Comments: De Santiago catheter in place - draining dark red urine. - Routine Extremities Exam Present: edema (trace-1+), non tender, pulses intact - Routine Back/Spine/Pelvis Exam Back/Spine: Present: full ROM. Absent: vertebral tenderness - Routine Musculoskeletal Exam Musculoskeletal: Present: no clubbing or cyanosis, moving extremities well - Routine Skin Exam Present: dry, warm Comments: Afebrile. - Routine Neurological Exam Present: alert, moving all extremities, hearing grossly intact, normal speech - Routine Lymphatic Exam Lymphatic: Absent: lymphedema - Routine Psychiatric Exam Present: cooperative Results - Labs CBC & Chem 7: 08/27/17 04:27 08/27/17 04:27 Microbiology Results: Microbiology 08/22/17 13:47 Gallbladder Fluid Gram Stain - Final 08/22/17 13:47 Gallbladder Fluid Body Fluid Culture - Final Klebsiella pneumoniae Assessment and Plan (1) S/P laparoscopic cholecystectomy Problem details: 08/22/17 - Dr. Kennedy. Current visit: Yes Status: Acute (2) Acute cholecystitis Current visit: Yes Status: Acute Assessment and Plan: Assessment Acute cholecystitis -S/P robotic laparoscopic cholecystectomy Infected GB fluid- + Klebsiella Pneumoniae Post-op Ileus Urinary retention Hypertension Dyslipidemia GERD REENA History of stroke Plan - 08/27/17: GB fluid culture was positive for Klebsiella Pneumoniae - Continue on IV Zosyn ( Day 5). WBC trending up (16.1). Patient remains afebrile. Continue to monitor closely. De Santiago cath remains intact given retention. Currently draining dark red urine. Hemoglobin stable. Will likely require De Santiago with discharge. Hematuria likely due to trauma from multiple straight caths. Continue to monitor. KUB specious for ileus without obstruction. Blood pressure slightly elevated. Will resume home HCTZ. Continue to monitor closely. Continue clear liquid diet per Dr. Gomez - patient tolerating well. Continue to encourage frequent ambulation and incentive spirometry. Repeat CBC and BMP in AM to monitor blood counts, electrolytes and renal function. DVT Prophylaxis: SCD's GI Prophylaxis: Protonix Resuscitation Status: Full Code - Time spent with patient Time with patient PN: 30 minutes - Physician Narrative Physician: Scott Tracey MD Narrative: Date: 08/27/17 Time: 1435 Have independently interviewed and examined pt. Chart reviewed. Case discussed with my PA. Care plan developed with my supervision; agree with above. Feeling better, but not 100%. Is walking more-strength and endurance improving gradually. No nausea. Only ab pain is with positional changes. Is passing stool. Breathing well - uses IS routinely. No chest pressure or pain. No f/c. Lungs: decreased bilaterally, no crackles or wheezes. Breathing well on RA. CV: regular AB: soft slight distention, nt. BS decreased MSE: awake alert appropriate. Plan: Dr Gomez advanced diet to full liquid for this evening. Monitor pt's clinical response. Will start Culturelle for stools. WBC with elevation - possible could be secondary to continued Zosyn use. Will recheck WBC tomorrow- possible change to oral Augmenting. Continue De Santiago to DD - urine looking less red. Continue with ambulation. Hospital Course Summary Disclaimer: The visit summary below is not to be considered part of the above Progress Note. Hospital Course: 08/22/17- Admit Acute cholecystitis -Plan for cholecystectomy this afternoon -will keep NPO -IV fluids Constipation -once he is taking PO again we will initiate aggressive bowel regimen Hypertension -will continue metoprolol but change it to succinate to get the 24-hour control -will hold off diuresis as it will likely compound his constipation Dyslipidemia -continue Statin once starting PO again History of stroke -continue statin, I don't see that he is on a home aspirin, will confirm and if not start one at low dose if there is no contraindication. GERD -continue PPI BPH and spasms -continue Trospium and Ditropan XL Prophylaxis -SCD, PPI 08/23/17 Acute cholecystitis - S/P robotic laparoscopic cholecystectomy postop day 1 -advance diet as tolerated -continue IV antibiotics -transfer to the floor -increase activity Constipation -initiate aggressive bowel regimen Hypertension -metoprolol succinate 50 mg QHS Dyslipidemia -resume Statin History of stroke -continue statin -initiate aspirin 08/24/17 Acute cholecystitis - S/P robotic laparoscopic cholecystectomy postop day 2 -Change diet to clear for now -continue IV antibiotics -increase activity Constipation -initiate aggressive bowel regimen -Enema today if nec -Check KUB-it shows dilated stomach, NGT placed for decompression Hypertension -metoprolol succinate 50 mg QHS -Norvasc 5 mg added 08/25/17 Acute cholecystitis - S/P robotic laparoscopic cholecystectomy postop day 3 -Ileus -NPO -continue IV antibiotics -increase activity Constipation -initiate aggressive bowel regimen -Enemas x2 again today Ileus -NPO except meds Hypertension -metoprolol succinate 50 mg QHS -Norvasc 5 mg added Urinary retention, frequency and spasms -Continue Trospium and DC Ditropan XL -Flomax added -Check post void residual, straight cath as needed -If unable to get him on his own well may have to replace de santiago and keep until he can follow up with outpt urology Hematuria -Like De Santiago trauma but will follow -Will need outpt follow up with urology Dyslipidemia -resume Statin when taking po better. History of stroke -resume statin when taking po better -initiate aspirin 08/26/17 GB fluid culture was positive for Klebsiella Pneumoniae - Continue on IV Zosyn. De Santiago cath remains intact given retention. Will likely require De Santiago with discharge. Hematuria likely due to trauma from multiple straight caths. Bowels moved 3 times overnight- copious amount of brown stool. KUB Abdominal X-ray pending this morning. Will Check with Dr Gomez - But feel he can try Clear liquid diet this morning. Decrease IVF to 50cc/hr. Continue to follow routine labs. Encourage frequent ambulation. 08/27/17 GB fluid culture was positive for Klebsiella Pneumoniae - Continue on IV Zosyn ( Day 5). WBC trending up (16.1). Patient remains afebrile. Continue to monitor closely. De Santiago cath remains intact given retention. Currently draining dark red urine. Hemoglobin stable. Will likely require De Santiago with discharge. Hematuria likely due to trauma from multiple straight caths. Continue to monitor. KUB specious for ileus without obstruction. Blood pressure slightly elevated. Will resume home HCTZ. Continue to monitor closely. Continue clear liquid diet per Dr. Gomez; advancing to full liquid this evening. Can discontinue IVF. Will change Protonix to oral, now that patient taking oral well. Continue to encourage frequent ambulation and incentive spirometry. Repeat CBC and CMP in AM to monitor blood counts, electrolytes and renal function.
--- NOTE | 2017-08-27 17:01 | Progress Note ---
1DATE 08/27/2017 POSTOP DAY #5 HISTORY OF PRESENT ILLNESS The patient is ambulating in the halls well with assistance from the nurses. He has been ambulating at least a couple of times so far today in the halls. The patient is tolerating a clear liquid diet. He has no nausea or vomiting. His abdominal pain is less each day. The patient did have another moderate- sized bowel movement today. He is receiving some laxatives. The patient does have a Stone catheter in place with dark red urine draining from the Stone catheter. PHYSICAL EXAMINATION VITAL SIGNS: Temperature is 97.8 degrees Fahrenheit oral. Pulse is 73. Respiratory rate is 24. Blood pressure is 151/71. Oxygen saturation is 91% on room air. ABDOMEN: The abdomen is soft and nontender. The abdominal incisions all look good. No localized tenderness anywhere. LABORATORY DATA White blood cell count is 16,100 with 3 bands today. Hemoglobin is 12.9. Hematocrit is 39.2. Serum electrolytes are normal. IMPRESSION 1. Status post multiport robotic laparoscopic cholecystectomy on 08/22/2017 for treatment of severe acute cholecystitis and cholelithiasis. 2. Generalized ileus. Some of this was present preoperatively from the acute cholecystitis and some of this is postoperative ileus. 3. Severe constipation which is improving. 4. Bibasilar pulmonary atelectasis. 5. Worsening leukocytosis of uncertain cause. PLAN 1. Advance diet to full liquid diet with toast and crackers. 2. Continue ambulation of the patient. 3. Continue intravenous Zosyn. 4. Continue incentive spirometry for treatment of pulmonary atelectasis. 5. Continue sequential compression devices and subcutaneous heparin for deep venous thrombosis prophylaxis. 6. Continue to monitor white blood cell count. We may need to consult Infectious Disease if this continues to rise. MTDD
[2017-08-27] MEDS: NS 1,000 ML IV SCH (17:22)
[2017-08-27] MEDS: LACTOBACILLUS (15B cfu) CAPSULE PO SCH (18:09)
[2017-08-28] MEDS: HEPARIN SUB-Q 5,000units/0.5ml INJECTION SQ SCH ×3 (00:35→17:38)
[2017-08-28] MEDS: PIPERACILLIN/TAZOBACTAM 3.375 GM in NS 100 ML IV SCH (05:00)
[2017-08-28] MEDS: PANTOPRAZOLE 40 MG TABLET PO SCH (05:33)
[2017-08-28] MEDS: CALCIUM 600 + VIT D 400 TABLET PO SCH (05:33)
[2017-08-28] MEDS: TROSPIUM 20 MG TABLET PO SCH (06:18)
[2017-08-28] MEDS: TAMSULOSIN 0.4 MG CAPSULE PO SCH (08:31)
[2017-08-28] MEDS: LACTOBACILLUS (15B cfu) CAPSULE PO SCH ×3 (08:31→17:38)
[2017-08-28] MEDS: ASPIRIN 325 MG TABLET PO SCH (08:31)
[2017-08-28] MEDS: AMLODIPINE 5 MG TABLET PO SCH (08:36)
[2017-08-28] MEDS: POLYETHYL GLYCOL 3350 17gm PACKET PO SCH (08:36)
[2017-08-28] MEDS: SENNA + DOCUSATE TABLET PO SCH ×2 (08:36→20:05)
--- NOTE | 2017-08-28 09:25 | Progress Note ---
- Date 08/28/17 Subjective: F/U: POD #6 - S/P lap berkley secondary to acute cholecystitis. [place] is seen this morning while sitting in his chair. He reports that he is doing well and denies any current complaints. No chest pain, shortness of breath, abdominal pain, nausea or vomiting. He continues to have good bowel movement and urinary output is stable. Urine appears more clear and red-tinged today as compared to the dark red yesterday. Labs revealed persistent leukocytosis (WBC 16.2). He remains afebrile. Nursing reports that he has been up and walking and overall, doing well. His diet is being advanced and he is tolerating it well. Objective Vital signs: Temperature 98.3 F 08/28/17 07:00 Pulse Rate 81 08/28/17 07:00 Respiratory Rate 18 08/28/17 07:00 Blood Pressure 143/78 H 08/28/17 07:00 Pulse Oximetry 90 08/28/17 07:00 Height/Weight/BMI: Height 5 ft 6 in Weight 233 lb 3.985 oz Body Mass Index 37.5 Comments: Sitting up in the chair in room; nursing present on exam. - Constitutional Present: no acute distress, well nourished, well developed, cooperative - Routine HEENT Exam Head: Present: normocephalic, atraumatic Eye: Present: PERRL. Absent: conjunctival icterus ENT: Present: mucous membranes moist, oropharynx clear - Routine Respiratory Exam Present: decreased breath sounds. Absent: respiratory distress, wheezes Comments: Diminished breath sounds bilaterally in bases. Encouraged deep breathing. - Routine Cardiovascular Exam Present: RRR, S1, S2 - Routine Abdominal Exam Present: soft, normoactive bowel sounds, non distended, non tender - Routine Extremities Exam Present: edema (1+ bilaterally), full ROM, pulses intact - Routine Back/Spine/Pelvis Exam Back/Spine: Present: full ROM. Absent: vertebral tenderness - Routine Musculoskeletal Exam Musculoskeletal: Present: moving extremities well - Routine Skin Exam Present: dry, warm Comments: Afebrile. - Routine Neurological Exam Present: alert, moving all extremities, hearing grossly intact, normal speech - Routine Lymphatic Exam Lymphatic: Absent: lymphedema - Routine Psychiatric Exam Present: normal affect, cooperative Results - Labs CBC & Chem 7: 08/28/17 04:32 08/28/17 04:32 Microbiology Results: Microbiology 08/22/17 13:47 Gallbladder Fluid Gram Stain - Final 08/22/17 13:47 Gallbladder Fluid Body Fluid Culture - Final Klebsiella pneumoniae Assessment and Plan (1) Acute cholecystitis Current visit: Yes Status: Acute (2) S/P laparoscopic cholecystectomy Problem details: 08/22/17 - Dr. Kennedy. Current visit: Yes Status: Acute Assessment and Plan: Assessment Acute cholecystitis -S/P robotic laparoscopic cholecystectomy Infected GB fluid- + Klebsiella Pneumoniae Post-op Ileus Urinary retention Hypertension Dyslipidemia GERD REENA History of stroke Plan - 08/28/17: GB fluid culture was positive for Klebsiella Pneumoniae. Leukocytosis persistent (16.2). Remains afebrile. Will discontinue Zosyn and initiate Augmentin. Consult Dr. Joiner (infectious disease) for additional treatment recommendations/ durations. Appreciate her time and expertise. De Santiago cath remains intact given retention. Urine color improved to clear, red tinged. Continue to monitor closely. Hemoglobin stable. Will likely require De Santiago with discharge. Hematuria likely due to trauma from multiple straight caths. Continue to monitor. Continue with bowel motivation given recent ileus. Blood pressure slightly elevated. HCTZ resumed 08/28/17. Continue to monitor closely. Advancing diet. Patient tolerating well. Continue to encourage frequent ambulation and incentive spirometry. Consult PT/ OT. Repeat CBC and BMP in AM to monitor blood counts, electrolytes and renal function. DVT Prophylaxis: SCD's GI Prophylaxis: Protonix Resuscitation Status: Full Code - Time spent with patient Time with patient PN: 30 minutes - Physician Narrative Physician: Scott Tracey MD Narrative: Date: 08/28/17 Time: 2000 Have independently interviewed and examined pt. Chart reviewed. Case discussed with Dr Gomez and my PA. Care plan developed with my supervision; agree with above. Doing okay. Eating well-no nausea or ab pain with eating. Breathing well. Ambulating more. No f/c. Lungs: decreased no distress CV: regular AB: soft nt/nd MSE: awake alert appropriate Plan: Will stop Zosyn - possible increased WBC secondary to continued Zosyn use. As oral drive increasing, will stop IVF. Continue to mobilize-making good gains. Recheck lab in am. Hospital Course Summary Disclaimer: The visit summary below is not to be considered part of the above Progress Note. Hospital Course: 08/22/17- Admit Acute cholecystitis -Plan for cholecystectomy this afternoon -will keep NPO -IV fluids Constipation -once he is taking PO again we will initiate aggressive bowel regimen Hypertension -will continue metoprolol but change it to succinate to get the 24-hour control -will hold off diuresis as it will likely compound his constipation Dyslipidemia -continue Statin once starting PO again History of stroke -continue statin, I don't see that he is on a home aspirin, will confirm and if not start one at low dose if there is no contraindication. GERD -continue PPI BPH and spasms -continue Trospium and Ditropan XL Prophylaxis -SCD, PPI 08/23/17 Acute cholecystitis - S/P robotic laparoscopic cholecystectomy postop day 1 -advance diet as tolerated -continue IV antibiotics -transfer to the floor -increase activity Constipation -initiate aggressive bowel regimen Hypertension -metoprolol succinate 50 mg QHS Dyslipidemia -resume Statin History of stroke -continue statin -initiate aspirin 08/24/17 Acute cholecystitis - S/P robotic laparoscopic cholecystectomy postop day 2 -Change diet to clear for now -continue IV antibiotics -increase activity Constipation -initiate aggressive bowel regimen -Enema today if nec -Check KUB-it shows dilated stomach, NGT placed for decompression Hypertension -metoprolol succinate 50 mg QHS -Norvasc 5 mg added 08/25/17 Acute cholecystitis - S/P robotic laparoscopic cholecystectomy postop day 3 -Ileus -NPO -continue IV antibiotics -increase activity Constipation -initiate aggressive bowel regimen -Enemas x2 again today Ileus -NPO except meds Hypertension -metoprolol succinate 50 mg QHS -Norvasc 5 mg added Urinary retention, frequency and spasms -Continue Trospium and DC Ditropan XL -Flomax added -Check post void residual, straight cath as needed -If unable to get him on his own well may have to replace de santiago and keep until he can follow up with outpt urology Hematuria -Like De Santiago trauma but will follow -Will need outpt follow up with urology Dyslipidemia -resume Statin when taking po better. History of stroke -resume statin when taking po better -initiate aspirin 08/26/17 POD #4 GB fluid culture was positive for Klebsiella Pneumoniae - Continue on IV Zosyn. De Santiago cath remains intact given retention. Will likely require De Santiago with discharge. Hematuria likely due to trauma from multiple straight caths. Bowels moved 3 times overnight- copious amount of brown stool. KUB Abdominal X-ray pending this morning. Will Check with Dr Gomez - But feel he can try Clear liquid diet this morning. Decrease IVF to 50cc/hr. Continue to follow routine labs. Encourage frequent ambulation. 08/27/17 POD #5 GB fluid culture was positive for Klebsiella Pneumoniae - Continue on IV Zosyn ( Day 5). WBC trending up (16.1). Patient remains afebrile. Continue to monitor closely. De Santiago cath remains intact given retention. Currently draining dark red urine. Hemoglobin stable. Hematuria likely due to trauma from multiple straight caths. Continue to monitor. KUB specious for ileus without obstruction. Blood pressure slightly elevated. Will resume home HCTZ. Continue to monitor closely. Continue clear liquid diet per Dr. Gomez; advancing to full liquid this evening. Will change Protonix to oral, now that patient taking oral well. Continue to encourage frequent ambulation and incentive spirometry. 08/28/17 POD #6 Leukocytosis persistent (16.2). Remains afebrile. Will discontinue Zosyn (Day 6). Consult Dr. Joiner (infectious disease) for additional treatment recommendations/ durations. Appreciate her time and expertise. De Santiago cath remains intact given retention. Urine color improved to clear, red tinged. Continue to monitor closely. Hemoglobin stable. Will likely require De Santiago with discharge. Hematuria likely due to trauma from multiple straight caths. Continue to monitor. Continue with bowel motivation given recent ileus. Blood pressure slightly elevated. HCTZ resumed 08/28/17. Continue to monitor closely. Advancing diet. Patient tolerating well. Will discontinue IVF as oral intake improving. Continue to encourage frequent ambulation and incentive spirometry. Consult PT/ OT.
[2017-08-28] MEDS ORDERED: FUROSEMIDE 20 MG/2 ML INJECTION IVP ONE (09:27)
--- NOTE | 2017-08-28 11:29 | Progress Note ---
DATE 08/28/2017 POSTOP DAY #6 HISTORY The patient continues to do a little better each day. He is tolerating a full liquid diet with toast and crackers. He continues to have bowel movements. He is ambulating in the gray with help from the nurses. He still has a Stone catheter in place. PHYSICAL EXAMINATION VITAL SIGNS: Temperature is 98.3 degrees Fahrenheit oral. Pulse is 81. Respiratory rate is 18. Blood pressure is 143/78. Oxygen saturations is 90% on room air. ABDOMEN: The abdominal incisions look good. The abdomen is soft and nontender. LABORATORY DATA White blood cell count is 16,200 with 2 bands. Hemoglobin is 13.7. Hematocrit is 40.8. Electrolytes are normal. Total bilirubin is 1.2 today. AST, ALT and alkaline phosphatase are all normal. IMPRESSION 1. Status post multiport robotic laparoscopic cholecystectomy on 08/22/2017 for treatment of severe acute cholecystitis and cholelithiasis. 2. Generalized ileus which is improving clinically. 3. Severe constipation which is improving clinically. 4. Bibasilar pulmonary atelectasis. 5. Leukocytosis of uncertain cause. PLAN 1. Continue to advance diet as tolerated. 2. Continue ambulation. 3. I think that the intravenous Zosyn could be stopped. 4. Continue incentive spirometry for treatment of pulmonary atelectasis. 5. Continue sequential compression devices and subcutaneous heparin for deep venous thrombosis prophylaxis. 6. Continue to monitor white blood cell count. MTDD
[2017-08-28] MEDS: NS 1,000 ML IV SCH (19:20)
[2017-08-28] MEDS ORDERED: AMOX/CLAV 875 MG/125 MG TABLET PO SCH (21:00)
[2017-08-29] MEDS: HEPARIN SUB-Q 5,000units/0.5ml INJECTION SQ SCH ×2 (00:03→09:45)
[2017-08-29] MEDS: PANTOPRAZOLE 40 MG TABLET PO SCH (05:32)
[2017-08-29] MEDS: CALCIUM 600 + VIT D 400 TABLET PO SCH (05:32)
[2017-08-29] MEDS: TROSPIUM 20 MG TABLET PO SCH (06:44)
--- NOTE | 2017-08-29 08:58 | Progress Note ---
- Date 08/29/17 Subjective: F/U: POD #7 - S/P lap berkley secondary to acute cholecystitis. Jackson is seen while resting in bed first thing this morning. He reports that he is doing well and denies any current pain, though does admit to some chronic low back pain during the night. He is eager for breakfast and is tolerating regular diet well. No chest pain, shortness of breath, abdominal pain, nausea or vomiting. De Santiago remains in place and actively draining with good urinary output which appears to be clear yellow. Weight trending down following lasix 20mg x 1 dose yesterday. Persistent leukocytosis improving with WBC 14.7, trending down, after discontinuation of Zosyn yesterday, 08/28/17. Objective Vital signs: Temperature 98.0 F 08/29/17 07:27 Pulse Rate 76 08/29/17 07:27 Respiratory Rate 14 08/29/17 07:27 Blood Pressure 157/71 H 08/29/17 07:27 Pulse Oximetry 91 08/29/17 07:49 Height/Weight/BMI: Height 5 ft 6 in Weight 224 lb 13.944 oz Body Mass Index 37.5 Comments: Resting in bed, eager for breakfast. - Constitutional Present: no acute distress, well nourished, well developed, cooperative - Routine HEENT Exam Head: Present: normocephalic, atraumatic Eye: Present: PERRL. Absent: conjunctival icterus ENT: Present: mucous membranes moist, oropharynx clear - Routine Respiratory Exam Present: CTA bilaterally. Absent: respiratory distress, wheezes - Routine Cardiovascular Exam Present: RRR, S1, S2 - Routine Abdominal Exam Present: soft, normoactive bowel sounds, non distended, non tender - Routine Extremities Exam Present: edema (trace), full ROM, pulses intact - Routine Back/Spine/Pelvis Exam Back/Spine: Present: full ROM. Absent: vertebral tenderness - Routine Musculoskeletal Exam Musculoskeletal: Present: no clubbing or cyanosis, moving extremities well - Routine Skin Exam Present: intact, dry, warm Comments: Afebrile. - Routine Neurological Exam Present: alert, moving all extremities, hearing grossly intact, normal speech - Routine Lymphatic Exam Lymphatic: Absent: lymphedema - Routine Psychiatric Exam Present: normal affect, cooperative Results - Labs CBC & Chem 7: 08/29/17 04:37 08/29/17 04:37 Microbiology Results: Microbiology 08/22/17 13:47 Gallbladder Fluid Gram Stain - Final 08/22/17 13:47 Gallbladder Fluid Body Fluid Culture - Final Klebsiella pneumoniae Assessment and Plan (1) Acute cholecystitis Current visit: Yes Status: Acute (2) S/P laparoscopic cholecystectomy Problem details: 08/22/17 - Dr. Kennedy. Current visit: Yes Status: Acute Assessment and Plan: Assessment Acute cholecystitis -S/P robotic laparoscopic cholecystectomy Infected GB fluid- + Klebsiella Pneumoniae Post-op Ileus Urinary retention Hypertension Dyslipidemia GERD REENA History of stroke Plan Leukocytosis persistent (14.7) though trending down after discontinuation of Zosyn on 08/28/17.). Remains afebrile. Discussed with Dr. Joiner who agreed with discontinuation of Zosyn. De Santiago cath remains intact given retention. Urine color improved to clear yellow. Continue to monitor closely. Will likely require De Santiago with discharge. Bowels moving well. Continue bowel motivation. Tolerating regular diet well. Blood pressure slightly elevated. HCTZ resumed 08/28/17. Consider increasing Norvasc to 10mg daily or addition of lisinopril 2.5mg daily. Continue to monitor closely. PT/OT felt patient would benefit from IP rehab for continued strengthening and improvement in functional ability. Will obtain IRU evaluation. Continue to encourage frequent ambulation and incentive spirometry. Repeat CBC and BMP in AM to monitor blood counts, electrolytes and renal function. DVT Prophylaxis: SCD's GI Prophylaxis: Protonix Resuscitation Status: Full Code - Time spent with patient Time with patient PN: 30 minutes - Physician Narrative Physician: Scott Tracey MD Narrative: Date: 08/29/17 Time: 1605 Have independently interviewed and examined pt. Chart reviewed. Case discussed with Dr Gomez and my PA. Care plan developed with my supervision; agree with above. Doing well overall. Strength improving. Eating well. Bowels moving. No nausea. Pain controlled. Breathing well except for cough. Lungs: decreased, faint wheeze. CV: regular AB: soft nt BS present MSE: awake alert appropriate Plan: Medically stable for discharge to home. No specific wound care needed - steri strip can fall of on own. Continue Tylenol for pain. Increase activities. Norvasc 5mg added for BP control and ASA 81mg added for stroke prevention. Continue with De Santiago to DD - Flomax added to [place] and Ditropan stopped. Will need F/U with Dr Dl Pace in about 1 week for urinary retention - De Santiago continued at discharge. F/U with Dr Norris in 1 week - recommend rechecking CBC and BMP at that time. See orders for details. Hospital Course Summary Disclaimer: The visit summary below is not to be considered part of the above Progress Note. Hospital Course: 08/22/17- Admit Acute cholecystitis -Plan for cholecystectomy this afternoon -will keep NPO -IV fluids Constipation -once he is taking PO again we will initiate aggressive bowel regimen Hypertension -will continue metoprolol but change it to succinate to get the 24-hour control -will hold off diuresis as it will likely compound his constipation Dyslipidemia -continue Statin once starting PO again History of stroke -continue statin, I don't see that he is on a home aspirin, will confirm and if not start one at low dose if there is no contraindication. GERD -continue PPI BPH and spasms -continue Trospium and Ditropan XL Prophylaxis -SCD, PPI 08/23/17 Acute cholecystitis - S/P robotic laparoscopic cholecystectomy postop day 1 -advance diet as tolerated -continue IV antibiotics -transfer to the floor -increase activity Constipation -initiate aggressive bowel regimen Hypertension -metoprolol succinate 50 mg QHS Dyslipidemia -resume Statin History of stroke -continue statin -initiate aspirin 08/24/17 Acute cholecystitis - S/P robotic laparoscopic cholecystectomy postop day 2 -Change diet to clear for now -continue IV antibiotics -increase activity Constipation -initiate aggressive bowel regimen -Enema today if nec -Check KUB-it shows dilated stomach, NGT placed for decompression Hypertension -metoprolol succinate 50 mg QHS -Norvasc 5 mg added 08/25/17 Acute cholecystitis - S/P robotic laparoscopic cholecystectomy postop day 3 -Ileus -NPO -continue IV antibiotics -increase activity Constipation -initiate aggressive bowel regimen -Enemas x2 again today Ileus -NPO except meds Hypertension -metoprolol succinate 50 mg QHS -Norvasc 5 mg added Urinary retention, frequency and spasms -Continue Trospium and DC Ditropan XL -Flomax added -Check post void residual, straight cath as needed -If unable to get him on his own well may have to replace de santiago and keep until he can follow up with outpt urology Hematuria -Like De Santiago trauma but will follow -Will need outpatient follow up with urology Dyslipidemia -resume Statin when taking po better. History of stroke -resume statin when taking po better -initiate aspirin 08/26/17 POD #4 GB fluid culture was positive for Klebsiella Pneumoniae - Continue on IV Zosyn. De Santiago cath remains intact given retention. Will likely require De Santiago with discharge. Hematuria likely due to trauma from multiple straight caths. Bowels moved 3 times overnight- copious amount of brown stool. KUB Abdominal X-ray pending this morning. Will Check with Dr Gomez - But feel he can try Clear liquid diet this morning. Decrease IVF to 50cc/hr. Continue to follow routine labs. Encourage frequent ambulation. 08/27/17 POD #5 Continue on IV Zosyn (Day 5). WBC trending up (16.1). Patient remains afebrile. Continue to monitor closely. De Santiago cath remains intact given retention. Currently draining dark red urine. Hemoglobin stable. Hematuria likely due to trauma from multiple straight caths. Continue to monitor. KUB specious for ileus without obstruction. Blood pressure slightly elevated. Will resume home HCTZ. Continue to monitor closely. Continue clear liquid diet per Dr. Gomez; advancing to full liquid this evening. Will change Protonix to oral, now that patient taking oral well. Continue to encourage frequent ambulation and incentive spirometry. 08/28/17 POD #6 Leukocytosis persistent (16.2). Remains afebrile. Will discontinue Zosyn (Day 6). Consult Dr. Joiner (infectious disease) for additional treatment recommendations/ durations. Appreciate her time and expertise. De Santiago cath remains intact given retention. Urine color improved to clear, red tinged. Continue to monitor closely. Hemoglobin stable. Will likely require De Santiago with discharge. Hematuria likely due to trauma from multiple straight caths. Continue to monitor. Continue with bowel motivation given recent ileus. Blood pressure slightly elevated. HCTZ resumed 08/28/17. Continue to monitor closely. Advancing diet. Patient tolerating well. Will discontinue IVF as oral intake improving. Continue to encourage frequent ambulation and incentive spirometry. Consult PT/ OT. 08/29/17 POD #7 Discharge Leukocytosis persistent (14.7) though trending down after discontinuation of Zosyn on 08/28/17.). Remains afebrile. Discussed with Dr. Joiner who agreed with discontinuation of Zosyn. Medically stable for discharge to home. No specific wound care needed - steri strip can fall of on own. May follow up with Dr Gomez only as needed. Continue Tylenol for pain. Increase activities. Norvasc 5mg added for BP control and ASA 81mg added for stroke prevention. Continue with De Santiago to DD - Flomax added to [place] and Ditropan stopped. Will need F/U with Dr Dl Pace in about 1 week for urinary retention - De Santiago continued at discharge. F/U with Dr Norris in 1 week - recommend rechecking CBC and BMP at that time. See orders for details.
[2017-08-29] MEDS: TAMSULOSIN 0.4 MG CAPSULE PO SCH (09:43)
[2017-08-29] MEDS: AMLODIPINE 5 MG TABLET PO SCH (09:44)
[2017-08-29] MEDS: ASPIRIN 325 MG TABLET PO SCH (09:44)
[2017-08-29] MEDS: SENNA + DOCUSATE TABLET PO SCH (09:45)
[2017-08-29] MEDS: POLYETHYL GLYCOL 3350 17gm PACKET PO SCH (09:45)
[2017-08-29] MEDS: LACTOBACILLUS (15B cfu) CAPSULE PO SCH ×2 (09:45→12:35)
--- NOTE | 2017-08-29 13:08 | Progress Note ---
DATE 08/29/2017 POSTOP DAY #7 HISTORY The patient is tolerating a regular diet. He is having loose bowel movements, according to the nurses. The patient denies any abdominal discomfort. PHYSICAL EXAMINATION VITAL SIGNS: Temperature is 98 degrees Fahrenheit oral. Pulse is 76. Respiratory rate is 14. Blood pressure is 157/71. Oxygen saturation is 98% on room air. ABDOMEN: The abdominal incisions look good. The abdomen is soft and nontender. LABORATORY DATA White blood cell count is 14,700 with 1 band today. Hemoglobin is 14.4. Hematocrit is 42.6. Serum sodium is 140. Serum potassium is 3.4. IMPRESSION 1. Status post multiport robotic laparoscopic cholecystectomy on 08/22/2017 for treatment of severe acute cholecystitis and cholelithiasis. 2. Leukocytosis of uncertain cause which is improving. PLAN 1. Continue regular diet. 2. Continue to advance activity as tolerated. 3. Continue incentive spirometry for treatment of pulmonary atelectasis. 4. Continue sequential compression devices and subcutaneous heparin for deep venous thrombosis prophylaxis. 5. Continue to monitor white blood cell count. 6. The patient is being evaluated for admission to the Inpatient Rehabilitation Unit for continued strengthening and improvement in functional ability. MTDD
[2017-08-29 16:04] VITALS: BP 146/73; PULSE 79; RESP 18; TEMP 98.1; O2SAT 93
--- NOTE | 2017-08-29 16:21 | Discharge Summary ---
Discharge Information Date of admission: 08/22/17 04:56 Anticipated date of discharge: 08/29/17 Attending Physician: Scott Tracey MD Primary care physician: Mikayla Norris MD Consults: Physician Consult: Angel Gomez Reason For Exam: acute cholecystitis Consult to Anesthesiology Reason For Exam: Normal Procedure PT/OT - Discharge Diagnosis (1) Acute cholecystitis Status: Acute (2) S/P laparoscopic cholecystectomy Status: Acute Discharge diagnosis Acute cholecystitis -S/P robotic laparoscopic cholecystectomy Associated conditions and complications Infected GB fluid- + Klebsiella Pneumoniae Leukocytosis Post-op Ileus Urinary retention Hypertension Dyslipidemia GERD REENA Obesity with BMI 36.3 History of stroke - Procedures Procedures: DATE OF OPERATION: 08/22/2017 OPERATION: Multiport robotic laparoscopic cholecystectomy. PREOPERATIVE DIAGNOSIS: Acute cholecystitis and cholelithiasis. POSTOPERATIVE DIAGNOSIS: Acute cholecystitis and cholelithiasis. SURGEON: Angel Gomez MD - Laboratory Labs: Admit Lab 08/22/17 02:12 WBC 17.2 H Hgb 16.0 Hct 47.0 MCV 92.3 Plt Count 213 Neutrophils % (Manual) 79.0 H Band Neutrophils % 3.0 Lymphocytes % (Manual) 14.0 L Monocytes % (Manual) 4.0 Admit Lab 08/22/17 08/22/17 02:12 08:47 Sodium 136 Potassium 4.1 Chloride 96 L Carbon Dioxide 30 Anion Gap 10 BUN 27.0 H Creatinine 1.2 GFR Calculation 57 Glucose 119 H Calculated Osmolality 268 Calcium 9.8 Total Bilirubin 3.50 H Conjugated Bilirubin 0.00 Unconjugated Bilirubin 3.10 H AST 34 ALT 29 Alkaline Phosphatase 75 Total Protein 7.9 Albumin 4.6 Globulin 3.3 Albumin/Globulin Ratio 1.4 Lipase 63 Plasma Lactate 1.2 08/29/17 04:37 08/29/17 04:37 - Microbiology Microbiology 08/22/17 13:47 Gallbladder Fluid Gram Stain - Final 08/22/17 13:47 Gallbladder Fluid Body Fluid Culture - Final Klebsiella pneumoniae - Radiology Radiology: Date of Exam: 08/22/17 Type of Exam: CT abdomen pelvis w con Findings: Atelectasis seen in both lower lobes with areas of scarring. Heart is enlarged. Small amount of ascites present. The gallbladder is distended, inflamed and thick walled. The liver shows some edema in the gallbladder fossa and mild fatty infiltration. No bile duct dilatation. The spleen, pancreas and adrenal glands are within normal limits. Right renal cyst. Kidneys are otherwise unremarkable. No abdominal or pelvic adenopathy. Bladder is normal. Prostate is moderately enlarged. Sigmoid diverticulosis without evidence of acute diverticulitis. Large amount of stool in the right colon and cecum with several fluid-filled small bowel loops that could represent an ileus or gastroenteritis. Bone windows show degenerative change in the spine. Impression: Acute cholecystitis. Surgical consultation is recommended. Date of Exam: 08/22/17 Type of Exam: US gall bladder Findings: Hepatic parenchyma is homogeneous without evidence for focal mass. The gallbladder is diffusely abnormal with severe wall thickening up to 8 mm. There is wall edema present. Multiple gallstones are seen in the neck of the gallbladder that appeared fixed in position. Sonographic Barba's sign was reportedly positive. Both the intra and extrahepatic biliary system are of normal caliber with the common duct measuring 5 mm in dimension. Visualized portions of the head and body of the pancreas are unremarkable. The right kidney is present without collecting system dilatation. The right kidney measures 12.8 cm in length. 2.7 cm right renal cyst. Impression: Acute cholecystitis. Date of Exam: 08/24/17 Type of Exam: XR KUB Findings: Nasogastric tube is seen coiling back upon itself with the tip above the level of the image in the mid to upper thoracic esophagus. Side port projects over the lower esophagus. Mild interstitial prominence in the lung bases. Mild diffuse small and large bowel distention. Impression: Nasogastric tube is looped in the esophagus. Date of Exam: 08/24/17 Type of Exam: XR KUB Findings: Nasogastric tube remains coiled in the esophagus with the tip projecting over the mid to lower thoracic esophagus. Gaseous distention of the stomach, small and large bowel is unchanged. Slight increase in bibasilar atelectasis. Impression: Nasogastric tube remains coiled in the esophagus. Date of Exam: 08/24/17 Type of Exam: XR KUB Findings: Mild atelectasis in the lung bases. There is gaseous distention of the stomach. Mildly prominent small and large bowel with diffuse distention. There is subcutaneous emphysema in the left abdomen probably related to recent surgery. Moderate to large amount of stool in the colon. Degenerative change in the spine. Impression: 1. Findings of a generalized ileus. 2. Increased colonic stool burden. 3. Basilar atelectasis. Date of Exam: 08/24/17 Type of Exam: FL fluoroscopy <1hr, Fluoro guided NGT placement Impression: Successful repositioning of the nasogastric tube into the mid portion of the stomach. Date of Exam: 08/25/17 Type of Exam: XR abdomen 2V Findings: The nasogastric tube is no longer seen. Air-fluid levels are noted within the stomach and small bowel. Scattered colonic gas is seen. No abnormally dilated small bowel loops appreciated. Moderate stool in the colon. Subcutaneous gas in the left abdominal wall. Impression: Interval removal of the nasogastric tube. Findings of a generalized ileus. Date of Exam: 08/26/17 Type of Exam: XR KUB FINDINGS: Gas and fecal contents demonstrated within the colonic bowel loops. There is no evidence for bowel obstruction or free intraperitoneal air. No abnormal radiopacities overlying the abdomen. The lung bases are clear. IMPRESSION: 1. Bowel gas pattern is unremarkable without evidence for obstruction or significant constipation. Date of Exam: 08/26/17 Type of Exam: XR KUB FINDINGS: Gas containing small bowel large bowel loops. Small amount of subcutaneous emphysema along the left lateral abdominal wall. No visible free intraperitoneal air. No evidence for bowel obstruction. No abnormal radiopacities overlying the abdomen. The lung bases are clear. IMPRESSION: 1. Gas containing large and small bowel loops without evidence for bowel obstruction. Mild ileus is a consideration. 2. Subcutaneous emphysema suggested along the left lateral abdominal wall. History of Present Illness HPI: 87 yo who presents to the ER c/o mid abdominal pain, constant, sharp cramping, radiating to the rt shoulder blade present for the past 5 days. no fevers, chills, vomiting but + for nausea and constipation X 5 days, bloating and distention. He went to an ER in [place], [place] and was told he was constipated and sent home on Miralax. For complete details of the H&P refer to that document. 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 For more details refer to the complete medical record. Hospital course: 08/22/17- Admit Acute cholecystitis -Plan for cholecystectomy this afternoon -will keep NPO -IV fluids Constipation -once he is taking PO again we will initiate aggressive bowel regimen Hypertension -will continue metoprolol but change it to succinate to get the 24-hour control -will hold off diuresis as it will likely compound his constipation Dyslipidemia -continue Statin once starting PO again History of stroke -continue statin, I don't see that he is on a home aspirin, will confirm and if not start one at low dose if there is no contraindication. GERD -continue PPI BPH and spasms -continue Trospium and Ditropan XL Prophylaxis -SCD, PPI 08/23/17 Acute cholecystitis - S/P robotic laparoscopic cholecystectomy postop day 1 -advance diet as tolerated -continue IV antibiotics -transfer to the floor -increase activity Constipation -initiate aggressive bowel regimen Hypertension -metoprolol succinate 50 mg QHS Dyslipidemia -resume Statin History of stroke -continue statin -initiate aspirin 08/24/17 Acute cholecystitis - S/P robotic laparoscopic cholecystectomy postop day 2 -Change diet to clear for now -continue IV antibiotics -increase activity Constipation -initiate aggressive bowel regimen -Enema today if nec -Check KUB-it shows dilated stomach, NGT placed for decompression Hypertension -metoprolol succinate 50 mg QHS -Norvasc 5 mg added 08/25/17 Acute cholecystitis - S/P robotic laparoscopic cholecystectomy postop day 3 -Ileus -NPO -continue IV antibiotics -increase activity Constipation -initiate aggressive bowel regimen -Enemas x2 again today Ileus -NPO except meds Hypertension -metoprolol succinate 50 mg QHS -Norvasc 5 mg added Urinary retention, frequency and spasms -Continue Trospium and DC Ditropan XL -Flomax added -Check post void residual, straight cath as needed -If unable to get him on his own well may have to replace de santiago and keep until he can follow up with outpt urology Hematuria -Like De Santiago trauma but will follow -Will need outpatient follow up with urology Dyslipidemia -resume Statin when taking po better. History of stroke -resume statin when taking po better -initiate aspirin 08/26/17 POD #4 GB fluid culture was positive for Klebsiella Pneumoniae - Continue on IV Zosyn. De Santiago cath remains intact given retention. Will likely require De Santiago with discharge. Hematuria likely due to trauma from multiple straight caths. Bowels moved 3 times overnight- copious amount of brown stool. KUB Abdominal X-ray pending this morning. Will Check with Dr Gomez - But feel he can try Clear liquid diet this morning. Decrease IVF to 50cc/hr. Continue to follow routine labs. Encourage frequent ambulation. 08/27/17 POD #5 Continue on IV Zosyn (Day 5). WBC trending up (16.1). Patient remains afebrile. Continue to monitor closely. De Santiago cath remains intact given retention. Currently draining dark red urine. Hemoglobin stable. Hematuria likely due to trauma from multiple straight caths. Continue to monitor. KUB specious for ileus without obstruction. Blood pressure slightly elevated. Will resume home HCTZ. Continue to monitor closely. Continue clear liquid diet per Dr. Gomez; advancing to full liquid this evening. Will change Protonix to oral, now that patient taking oral well. Continue to encourage frequent ambulation and incentive spirometry. 08/28/17 POD #6 Leukocytosis persistent (16.2). Remains afebrile. Will discontinue Zosyn (Day 6). Consult Dr. Joiner (infectious disease) for additional treatment recommendations/ durations. Appreciate her time and expertise. De Santiago cath remains intact given retention. Urine color improved to clear, red tinged. Continue to monitor closely. Hemoglobin stable. Will likely require De Santiago with discharge. Hematuria likely due to trauma from multiple straight caths. Continue to monitor. Continue with bowel motivation given recent ileus. Blood pressure slightly elevated. HCTZ resumed 08/28/17. Continue to monitor closely. Advancing diet. Patient tolerating well. Will discontinue IVF as oral intake improving. Continue to encourage frequent ambulation and incentive spirometry. Consult PT/ OT. 08/29/17 POD #7 Discharge Leukocytosis persistent (14.7) though trending down after discontinuation of Zosyn on 08/28/17.). Remains afebrile. Discussed with Dr. Joiner who agreed with discontinuation of Zosyn. Medically stable for discharge to home. No specific wound care needed - steri strip can fall of on own. May follow up with Dr Gomez only as needed. Continue Tylenol for pain. Increase activities. Norvasc 5mg added for BP control and ASA 81mg added for stroke prevention. Continue with De Santiago to DD - Flomax added to [place] and Ditropan stopped. Will need F/U with Dr Dl Pace in about 1 week for urinary retention - De Santiago continued at discharge. F/U with Dr Norris in 1 week - recommend rechecking CBC and BMP at that time. See orders for details. Time spent with patient: discharge greater than 30 minutes Resuscitation Status: Full Code Discharge Plan - Discharge Disposition Discharge Date: 08/29/17 Disposition: 01 Discharged Home, Self-Care *Condition: Improved Reason For Visit (Visit label in EMR): acute cholecystitis - Discharge Medications *Discharge Medications: New RX: Aspirin [Children's Aspirin] 81 mg PO DAILY #1 bottle Bisacodyl Supp [Dulcolax] 10 mg DE DAILY PRN #1 box PRN Reason: Constipation RX: PEG 3350 17gm PACKET [Miralax] 17 gm PO DAILY packet RX: Tamsulosin [Flomax] 0.4 mg PO DAILY #30 cap RX: Amlodipine [Norvasc] 5 mg PO DAILY #30 tab Continue RX: Calcium 600 + D [Caltrate + D] 600 mg PO ACB RX: Atorvastatin [Lipitor] 1 tab PO HS RX: Omeprazole 40 mg PO DAILY RX: Metoprolol Tartrate 50 mg PO HS RX: Trospium [Sanctura] 20 mg PO DAILY RX: hydroCHLOROthiazide [Hydrochlorothiazide] 25 mg PO DAILY #0 tab RX: Vitamin E 400 units PO ACB RX: Acetaminophen [Tylenol 500 mg] 500 mg PO PRN PRN PRN Reason: Pain Discontinued Oxybutynin Chloride [Ditropan Xl] 10 mg PO DAILY - Discharge Packet/Instructions *Diet: Regular *Activity: As tolerated *Pain Management/Treatment: Tylenol as needed for pain. *Wound Care: None needed. Allow steri-strip to fall off on own. Additional Instructions: Routine De Santiago care. Continue de santiago to dependent drainage. You will need urological evaluation in 1 week. Stop Ditropan ( oxybutynin) while using De Santiago. Continue to use acapella and incentive spirometry 4 times a day for 2 weeks. *Expected Signs/Symptoms: Improvement of strength and functional status. Improvement of bowel function. *Notify Physician if: Temp > 100.4. Increasing SOA or cough. Intractable nausea. Severe constipation. *During Business Hours Contact: Dr Norris *After Business Hours Contact: Call [facility] and have your care provider contacted. *Pending Lab/Results: No Pending Lab - Referrals/Follow Up *Referrals/Follow Up: Mikayla Norris MD [Primary Care Provider] - 1 Week (Hospital follow up - Acute cholecystitis. Recommed recheckin BMP and CBC at that time. ) Sathya Pace MD [Physician] - 1 Week (Urinary retention. Discharged with De Santiago. Flomax added to [place]. Ditropan stopped. ) Angel Gomez MD [Physician] - (As needed for surgical care, concerns, or questions. ) - Patient Handouts - Dismissal Complete Discharge Instructions are:: Complete Physician Narrative - Narrative Physician: Scott Tracey MD Attestation Narrative: Date: 08/29/17 Time: 161 I have independently interviewed and examined patient prior to discharge. See my progress note for detail. Medically stable for discharge to home.
== END 2017-08-29 17:00 | disposition home or self-care (01) | DRG 418 ==
LOC: ED 01:00 → SUATTDRO 04:56 → SRG 04:56 → CCU 16:54 → SRG 08-23 11:30
PROVIDERS: ADMIT Internal Medicine; ATTEND Hospitalist